=== PATIENT | female | born 1955 | race Caucasian/White ===

== ENCOUNTER → 2019-03-17 | Day surgery (SDC) | payer MEDICARE, OTHER ==
[2019-03-16 15:27] LABS: BASOPHILS # (AUTO) 0.1 (0.0-0.1); BASOPHILS % 1.2 % (0.0-1.0); EOSINOPHILS # (AUTO) 0.1 (0.0-0.4); HEMATOCRIT 42.3 % (34.2-44.1); HEMOGLOBIN 14.1 g/dL (12.0-16.0); LYMPHOCYTES # (AUTO) 3.1 (1.0-3.2); LYMPHOCYTES % 44.2 % (18.0-39.1); MEAN CORPUSCULAR HEMOGLOBIN 28.5 pg (28-32); MEAN CORPUSCULAR HGB CONC 33.3 g/dL (31-35); MEAN CORPUSCULAR VOLUME 85.5 fL (81-99); MONOCYTES # (AUTO) 0.5 (0.2-0.8); MONOCYTES % 7.7 % (4.4-11.3); NEUTROPHILS # (AUTO) 3.1 (2.1-6.9); NEUTROPHILS % 44.6 % (38.7-80.0); PLATELET COUNT 281 x10e3/uL (140-360); RED BLOOD COUNT 4.95 x10e6/uL (3.6-5.1); RED CELL DISTRIBUTION WIDTH 14.8 % (11.7-14.4)
--- NOTE | 2019-03-16 16:08 | Diagnostic Imaging Report ---
EXAMINATION: PA and lateral views of the chest. Comparison examination: None available. Clinical indication: Preoperative study for fifth digit surgery. Findings: The lungs are well-inflated and without focal airspace consolidation, pleural effusion, or pneumothorax. Cardiomediastinal contour and pulmonary vasculature are within normal limits. No acute osseous abnormality. Degenerative disc changes of the partially visualized lumbar spine. IMPRESSION: No acute cardiopulmonary abnormalities. Signed by: Dr. Callum Álvarez M.D. on 03/16/2019 4:04 PM
[~2019-03-17] MED LIST: ALENDRONATE SOD70 MG PO; BIOTIN PO; CALTRATE PLUS1 EACH PO; CLINDAMYCIN 600MG / 50ML 50 ML IV ONE; DESFLURANE 240 ML BTL INH ONE; DEXAMETHASONE SOD PHOS INJ 4 MG/ML VIAL ONE; DOXYCYCLINE HYC50 MG PO; FENTANYL CITRATE/PF 100MCG/2 ML INJ ONE; LIDOCAINE HCL 2% LOCAL INJ 5 ML SDV VIAL INJ ONE; MEGA RED PO; MIDAZOLAM HCL 2 MG/2 ML VIAL ONE; MUPIROCIN22 GM TOP; NORCO 7.5-3251 EACH PO; OMEGA 3 PO; ONDANSETRON HCL INJ 2MG/ML 2ML 2 MG/ML VIAL ONE; PRESERVISION T1 EACH PO; PROPOFOL IV EMULSION 10 MG/ML 20 ML VIAL ONE; SYNTHROID PO; SYNTHROID88 MCG PO; ZOVIA 1-50E1 EACH PO; ZYRTEC-D TABLE1 EACH PO; ZYRTEC10 M3 PO; [UNRECOGNIZED DRUG - OTHER] OP; [UNRECOGNIZED DRUG - OTHER] PO; [UNRECOGNIZED DRUG - OTHER] PO; [UNRECOGNIZED DRUG - OTHER] PO; [UNRECOGNIZED DRUG - OTHER] PO; [UNRECOGNIZED DRUG - OTHER] PO
--- OUTSIDE RECORDS SUMMARY | 2019-03-17 08:06 | XMS REPORT | Continuity of Care Document ---
Author Author Leonora mohinder [facility] Interface Address Unknown Phone Unavailable Problems Problem Status Onset Date Classification Date Reported Comments Source Dry eyes 12/16/2018 Diagnosis 01/12/2019 [facility] Immunization 12/16/2018 Diagnosis 01/12/2019 [facility] At risk for falls 12/16/2018 Diagnosis 01/12/2019 [facility] Depression screening 12/16/2018 Diagnosis 01/12/2019 [facility] Cerebral palsy 12/16/2018 Diagnosis 01/12/2019 [facility] Degeneration of lumbar intervertebral disc 12/16/2018 Diagnosis 01/12/2019 [facility] Hyperlipidemia 12/16/2018 Problem 01/12/2019 [facility] Dry Eyes 12/16/2018 Problem 01/12/2019 [facility] Acute gastroenteritis 08/09/2017 Diagnosis 12/24/2017 [facility] Body mass index 20-24 - normal 06/20/2017 Diagnosis 12/24/2017 [facility] Degeneration of Lumbar Intervertebral Disc 04/02/2017 Problem 01/12/2019 [facility] Hip pain 02/12/2017 Diagnosis 12/24/2017 [facility] Removal of suture 01/22/2017 Diagnosis 12/24/2017 [facility] Abnormal gait due to muscle weakness 12/17/2016 Diagnosis 12/24/2017 [facility] History of methicillin resistant Staphylococcus aureus infection 12/17/2016 Diagnosis 12/24/2017 [facility] Cerebral Palsy 12/17/2016 Problem 01/12/2019 [facility] Osteoporosis 10/11/2016 Diagnosis 12/24/2017 [facility] Hypothyroidism 10/11/2016 Problem 01/12/2019 [facility] Adult health examination 07/09/2016 Diagnosis 12/24/2017 [facility] Medications Medication Details Route Status Patient Instructions Ordering Provider Order Date Source Ciprofloxacin 500 MG Oral Tablet [Cipro] Cipro 500 mg tablet Take 1 tablet every 12 hours by oral route. Active 12/24/2017 [facility] Atropine Sulfate 0.025 MG / Diphenoxylate Hydrochloride 2.5 MG Oral Tablet [Lomotil] Lomotil 2.5 mg-0.025 mg tablet Take 2 tablets 3 times a day by oral route. Active 12/24/2017 [facility] Oseltamivir 75 MG Oral Capsule oseltamivir 75 mg capsule Active 12/24/2017 [facility] meloxicam 15 MG Oral Tablet meloxicam 15 mg tablet Active 08/09/2017 [facility] OneTouch UltraMini kit OneTouch UltraMini kit Active 02/12/2017 [facility] loteprednol etabonate 5 MG/ML / Tobramycin 3 MG/ML Ophthalmic Suspension [Zylet] Zylet 0.3 %-0.5 % eye drops,suspension shake liquid and instill 1 drop in right eye four times daily Active 02/12/2017 [facility] Azithromycin 250 MG Oral Tablet azithromycin 250 mg tablet as directed Active 01/22/2017 [facility] Levothyroxine Sodium 0.075 MG Oral Tablet [Synthroid] Synthroid 75 mcg tablet Active 12/17/2016 [facility] Diclofenac Sodium 0.03 MG/MG Topical Gel diclofenac 3 % topical gel Active 07/09/2016 [facility] doxycycline hyclate 50 MG Oral Capsule doxycycline hyclate 50 mg capsule Active 07/09/2016 [facility] doxycycline hyclate 50 MG Delayed Release Oral Tablet doxycycline hyclate 50 mg tablet,delayed release Active 07/09/2016 [facility] Cyclosporine 0.5 MG/ML Ophthalmic Suspension [Restasis] Restasis 0.05 % eye drops in a dropperette Active 07/09/2016 [facility] Alendronic acid 70 MG Oral Tablet alendronate 70 mg tablet TAKE 1 TABLET WEEKLY Active [facility] Avenova 0.01 % topical spray Avenova 0.01 % topical spray BID Active [facility] Fish Oil Fish Oil two tabs twice a day Active [facility] loteprednol etabonate 5 MG/ML Ophthalmic Suspension [Lotemax] Lotemax 0.5 % eye drops,suspension qd Active [facility] multivitamin multivitamin one daily Active [facility] Mupirocin 0.02 MG/MG Topical Ointment mupirocin 2 % topical ointment APPLY A SMALL AMOUNT IN THE NOSTRILS AT BEDTIME. Active [facility] Ocuvite Ocuvite 1 tab a day Active [facility] OneTouch Delica Lancets 30 gauge OneTouch Delica Lancets 30 gauge USE ONCE DAILY Active [facility] OneTouch Delica Lancets 33 gauge OneTouch Delica Lancets 33 gauge QD Active [facility] Levothyroxine Sodium 0.088 MG Oral Tablet [Synthroid] Synthroid 88 mcg tablet Take 1 tablet every day by oral route for 90 days. Active [facility] Triamcinolone Acetonide 0.005 MG/MG Topical Ointment triamcinolone acetonide 0.5 % topical ointment APPLY A THIN LAYER TO THE AFFECTED AREA(S) BY TOPICAL ROUTE 2 TIMES PER DAY FOR UP TO 2 WEEKS Active [facility] True Metrix Glucose Test Strip True Metrix Glucose Test Strip USE DIRECTED EVERY DAY Active [facility] lifitegrast 50 MG/ML Ophthalmic Solution [Xiidra] Xiidra 5 % eye drops in a dropperette qd Active [facility] OneTouch Ultra Test strips OneTouch Ultra Test strips Active [facility] Allergies, Adverse Reactions, Alerts Substance Category Reaction Severity Reaction type Status Date Reported Comments Source Penicillins Allergy to substance 07/09/2016 [facility] Immunizations Immunization Date Given Site Status Last Updated Comments Source pneumococcal conjugate PCV 13 12/16/2018 completed [facility] influenza, injectable, quadrivalent, preservative free 06/10/2018 completed [facility] Influenza, injectable, MDCK, quadrivalent 06/20/2017 completed [facility] Tdap 01/15/2017 completed [facility] zoster 12/17/2016 completed [facility] Tdap 07/09/2016 completed [facility] influenza, seasonal, injectable, preservative free 07/09/2016 completed [facility] Results Order Name Results Value Reference Range Date Interpretation Comments Source Lipid 1995 panel - Serum or Plasma HDL 93 mg/dL 40 - 60 12/17/2018 high [facility] Lipid 1995 panel - Serum or Plasma triglyceride 66 mg/dL 0 - 149 12/17/2018 [facility] Lipid 1995 panel - Serum or Plasma VLDL calc. 13 mg/dL 12/17/2018 [facility] Lipid 1995 panel - Serum or Plasma cholesterol/HDL ratio 2.5 mg/dL 12/17/2018 [facility] Lipid 1995 panel - Serum or Plasma non-HDL cholesterol calc. 142 mg/dL 0 - 160 12/17/2018 [facility] Lipid 1995 panel - Serum or Plasma cholesterol 235 mg/dL 0 - 199 12/17/2018 [facility] Lipid 1995 panel - Serum or Plasma Cholesterol in LDL [Mass/volume] in Serum or Plasma 129 mg/dL 0 - 130 12/17/2018 [facility] Comprehensive metabolic 1999 panel - Serum or Plasma ALT 21 U/L 0 - 55 12/17/2018 [facility] Comprehensive metabolic 1999 panel - Serum or Plasma AST 27 U/L 5 - 34 12/17/2018 [facility] Comprehensive metabolic 1999 panel - Serum or Plasma BUN 11.1 mg/dL 9.8 - 20.1 12/17/2018 [facility] Comprehensive 1999 panel - Serum or Plasma alk phos 116 unit/L 40 - 150 12/17/2018 [facility] Comprehensive metabolic 1999 panel - Serum or Plasma glucose 101 mg/dL 70 - 99 12/17/2018 high [facility] Comprehensive metabolic 1999 panel - Serum or Plasma albumin 4.0 g/dL 3.5 - 5.0 12/17/2018 [facility] Comprehensive metabolic 1999 panel - Serum or Plasma creatinine 0.74 mg/dL 0.57 - 1.11 12/17/2018 [facility] Comprehensive 1999 panel - Serum or Plasma eGFR non- >60 12/17/2018 [facility] Comprehensive 1999 panel - Serum or Plasma total bilirubin 0.6 mg/dL 0.2 - 1.2 12/17/2018 [facility] Comprehensive metabolic 1999 panel - Serum or Plasma eGFR - >60 12/17/2018 [facility] Comprehensive 1999 panel - Serum or Plasma sodium 139 mEq/L 136 - 145 12/17/2018 [facility] Comprehensive metabolic 1999 panel - Serum or Plasma potassium 4.2 mEq/L 3.5 - 5.1 12/17/2018 [facility] Comprehensive 1999 panel - Serum or Plasma chloride 104 mmol/L 98 - 107 12/17/2018 [facility] Comprehensive metabolic 1999 panel - Serum or Plasma total protein 7.3 g/dL 6.4 - 8.3 12/17/2018 [facility] Comprehensive metabolic 1999 panel - Serum or Plasma calcium 10.0 mg/dL 8.4 - 10.2 12/17/2018 [facility] Comprehensive metabolic 1999 panel - Serum or Plasma CO2 26.7 mmol/L 23.0 - 31.0 12/17/2018 [facility] Comprehensive metabolic 1999 panel - Serum or Plasma anion gap 8 calc 12/17/2018 [facility] Thyrotropin [Units/volume] in Serum or Plasma TSH 1.061 uIU/mL 0.350 - 4.940 12/17/2018 [facility] Comprehensive metabolic 1999 panel - Serum or Plasma ALT 27 U/L 0 - 55 07/18/2017 [facility] Comprehensive metabolic 1999 panel - Serum or Plasma AST 31 U/L 5 - 34 07/18/2017 [facility] Comprehensive metabolic 1999 panel - Serum or Plasma BUN 15.3 mg/dL 9.8 - 20.1 07/18/2017 [facility] Comprehensive metabolic 1999 panel - Serum or Plasma alk phos 85 unit/L 40 - 150 07/18/2017 [facility] Comprehensive metabolic 1999 panel - Serum or Plasma glucose 103 mg/dL 70 - 99 07/18/2017 [facility] Comprehensive metabolic 1999 panel - Serum or Plasma albumin 3.9 g/dL 3.5 - 5.0 07/18/2017 [facility] Comprehensive metabolic 1999 panel - Serum or Plasma creatinine 0.72 mg/dL 0.57 - 1.11 07/18/2017 [facility] Comprehensive metabolic 1999 panel - Serum or Plasma eGFR non- >60 >60 07/18/2017 [facility] Comprehensive metabolic 1999 panel - Serum or Plasma total bilirubin 0.6 mg/dL 0.2 - 1.2 07/18/2017 [facility] Comprehensive metabolic 1999 panel - Serum or Plasma eGFR - >60 >60 07/18/2017 [facility] Comprehensive metabolic 1999 panel - Serum or Plasma sodium 143 mEq/L 136 - 145 07/18/2017 [facility] Comprehensive metabolic 1999 panel - Serum or Plasma potassium 4.5 mEq/L 3.5 - 5.1 07/18/2017 [facility] Comprehensive metabolic 1999 panel - Serum or Plasma chloride 108 mmol/L 98 - 107 07/18/2017 [facility] Comprehensive metabolic 1999 panel - Serum or Plasma total protein 7.2 g/dL 6.4 - 8.3 07/18/2017 [facility] Comprehensive metabolic 1999 panel - Serum or Plasma calcium 9.3 mg/dL 8.4 - 10.2 07/18/2017 [facility] Comprehensive metabolic 1999 panel - Serum or Plasma CO2 26.2 mmol/L 23.0 - 31.0 07/18/2017 [facility] Comprehensive metabolic 1999 panel - Serum or Plasma anion gap 9 calc 07/18/2017 [facility] Lipid 1995 panel - Serum or Plasma HDL 97 mg/dL 40 - 60 07/18/2017 [facility] Lipid 1995 panel - Serum or Plasma triglyceride 53 mg/dL 0 - 149 07/18/2017 [facility] Lipid 1996 panel - Serum or Plasma VLDL calc. 11 mg/dL 07/18/2017 [facility] Lipid 1996 panel - Serum or Plasma cholesterol/HDL ratio 2.4 mg/dL 07/18/2017 [facility] Lipid 1996 panel - Serum or Plasma non-HDL cholesterol calc. 135 mg/dL 0 - 160 07/18/2017 [facility] Lipid 1996 panel - Serum or Plasma cholesterol 232 mg/dL 0 - 199 07/18/2017 [facility] Lipid 1996 panel - Serum or Plasma LDL calc. 124 mg/dL 0 - 130 07/18/2017 [facility] CBC W Auto Differential panel - Blood WBC 5.99 x10*3/L 3.98 - 10.04 07/18/2017 [facility] CBC W Auto Differential panel - Blood RBC 4.60 10*12/L 3.93 - 5.22 07/18/2017 [facility] CBC W Auto Differential panel - Blood hemoglobin 13.00 g/dL 11.20 - 15.70 07/18/2017 [facility] CBC W Auto Differential panel - Blood hematocrit 40.6 % 34.1 - 44.9 07/18/2017 [facility] CBC W Auto Differential panel - Blood MCV 88.3 fL 80.0 - 100.0 07/18/2017 [facility] CBC W Auto Differential panel - Blood MCH 28.3 pg 25.6 - 32.2 07/18/2017 [facility] CBC W Auto Differential panel - Blood MCHC 32.0 g/dL 32.2 - 35.5 07/18/2017 [facility] CBC W Auto Differential panel - Blood RDW-SD 51.2 fL 36.4 - 46.3 07/18/2017 [facility] CBC W Auto Differential panel - Blood platelet count 289.0 k/uL 182.0 - 369.0 07/18/2017 [facility] CBC W Auto Differential panel - Blood MPV 12.0 fL 7.5 - 11.5 07/18/2017 [facility] CBC W Auto Differential panel - Blood neut% 45.8 % 34.0 - 71.1 07/18/2017 [facility] CBC W Auto Differential panel - Blood lymph% 42.4 % 19.3 - 51.7 07/18/2017 [facility] CBC W Auto Differential panel - Blood mon% 8.5 % 4.7 - 12.5 07/18/2017 [facility] CBC W Auto Differential panel - Blood eos% 2.5 % 0.7 - 5.8 07/18/2017 [facility] CBC W Auto Differential panel - Blood baso% 0.8 % 0.1 - 1.2 07/18/2017 [facility] CBC W Auto Differential panel - Blood neut# 2.7 x10*3/L 1.6 - 6.1 07/18/2017 [facility] CBC W Auto Differential panel - Blood lymph# 2.5 x10*3/L 1.2 - 3.7 07/18/2017 [facility] CBC W Auto Differential panel - Blood mon# 0.5 x10*3/L 0.2 - 0.9 07/18/2017 [facility] CBC W Auto Differential panel - Blood eos# 0.15 x10*3/L 0.04 - 0.36 07/18/2017 [facility] CBC W Auto Differential panel - Blood baso# 0.05 x10*3/L 0.01 - 0.08 07/18/2017 [facility] Thyrotropin [Units/volume] in Serum or Plasma TSH 2.089 uIU/mL 0.350 - 4.940 06/21/2017 [facility] Comprehensive metabolic 1999 panel - Serum or Plasma ALT 25 U/L 0 - 55 12/18/2016 [facility] Comprehensive metabolic 1999 panel - Serum or Plasma AST 27 U/L 5 - 34 12/18/2016 [facility] Comprehensive metabolic 1999 panel - Serum or Plasma BUN 17 mg/dL 7 - 20 12/18/2016 [facility] Comprehensive metabolic 1999 panel - Serum or Plasma alk phos 109 unit/L 40 - 150 12/18/2016 [facility] Comprehensive metabolic 1999 panel - Serum or Plasma glucose 101 mg/dL 70 - 99 12/18/2016 high [facility] Comprehensive metabolic 1999 panel - Serum or Plasma albumin 3.9 g/dL 3.5 - 5.0 12/18/2016 [facility] Comprehensive metabolic 1999 panel - Serum or Plasma creatinine 0.73 mg/dL 0.57 - 1.11 12/18/2016 [facility] Comprehensive metabolic 1999 panel - Serum or Plasma eGFR non- >60 >60 12/18/2016 [facility] Comprehensive metabolic 1999 panel - Serum or Plasma total bilirubin 0.6 mg/dL 0.2 - 1.2 12/18/2016 [facility] Comprehensive metabolic 1999 panel - Serum or Plasma eGFR - >60 >60 12/18/2016 [facility] Comprehensive metabolic 1999 panel - Serum or Plasma sodium 142 mEq/L 137 - 144 12/18/2016 [facility] Comprehensive metabolic 1999 panel - Serum or Plasma potassium 4.3 mEq/L 3.5 - 5.0 12/18/2016 [facility] Comprehensive metabolic 1999 panel - Serum or Plasma chloride 106 mmol/L 101 - 110 12/18/2016 [facility] Comprehensive metabolic 1999 panel - Serum or Plasma total protein 7.1 g/dL 6.4 - 8.3 12/18/2016 [facility] Comprehensive metabolic 1999 panel - Serum or Plasma calcium 8.9 mg/dL 8.4 - 10.2 12/18/2016 [facility] Comprehensive metabolic 1999 panel - Serum or Plasma CO2 25.7 mmol/L 22.0 - 31.0 12/18/2016 [facility] Comprehensive metabolic 1999 panel - Serum or Plasma anion gap 10 calc 12/18/2016 [facility] Lipid 1996 panel - Serum or Plasma HDL 90 mg/dL 40 - 60 12/18/2016 high [facility] Lipid 1996 panel - Serum or Plasma triglyceride 51 mg/dL 0 - 149 12/18/2016 [facility] Lipid 1996 panel - Serum or Plasma VLDL calc. 10 mg/dL 12/18/2016 [facility] Lipid 1996 panel - Serum or Plasma cholesterol/HDL ratio 2 mg/dL 12/18/2016 [facility] Lipid 1995 panel - Serum or Plasma non-HDL cholesterol calc. 133 mg/dL 0 - 160 12/18/2016 [facility] Lipid 1995 panel - Serum or Plasma cholesterol 223 mg/dL 0 - 199 12/18/2016 high [facility] Lipid 1995 panel - Serum or Plasma LDL calc. 123 mg/dL 0 - 130 12/18/2016 [facility] Thyrotropin [Units/volume] in Serum or Plasma TSH 1.358 uIU/mL 0.350 - 4.940 12/18/2016 [facility] CBC W Auto Differential panel - Blood WBC 10.57 x10*3/L 2.60 - 11.20 12/17/2016 [facility] CBC W Auto Differential panel - Blood RBC 4.41 10*12/L 3.93 - 5.87 12/17/2016 [facility] CBC W Auto Differential panel - Blood hemoglobin 12.60 g/dL 10.70 - 15.70 12/17/2016 [facility] CBC W Auto Differential panel - Blood hematocrit 37.9 % 33.2 - 46.8 12/17/2016 [facility] CBC W Auto Differential panel - Blood MCV 85.9 fL 77.8 - 103.4 12/17/2016 [facility] CBC W Auto Differential panel - Blood MCH 28.6 pg 24.8 - 35.0 12/17/2016 [facility] CBC W Auto Differential panel - Blood MCHC 33.2 g/dL 31.5 - 35.9 12/17/2016 [facility] CBC W Auto Differential panel - Blood RDW-SD 45.9 fL 35.8 - 50.4 12/17/2016 [facility] CBC W Auto Differential panel - Blood platelet count 286.0 k/uL 126.7 - 416.1 12/17/2016 [facility] CBC W Auto Differential panel - Blood MPV 11.0 fL 8.3 - 13.5 12/17/2016 [facility] CBC W Auto Differential panel - Blood neut% 62.2 % 39.5 - 76.9 12/17/2016 [facility] CBC W Auto Differential panel - Blood lymph% 25.4 % 12.6 - 45.8 12/17/2016 [facility] CBC W Auto Differential panel - Blood mon% 10.8 % 3.7 - 12.9 12/17/2016 [facility] CBC W Auto Differential panel - Blood eos% 1.1 % 0.7 - 6.4 12/17/2016 [facility] CBC W Auto Differential panel - Blood baso% 0.5 % 0.1 - 1.5 12/17/2016 [facility] CBC W Auto Differential panel - Blood neut# 6.6 x10*3/L 0.6 - 7.6 12/17/2016 [facility] CBC W Auto Differential panel - Blood lymph# 2.7 x10*3/L 0.7 - 3.3 12/17/2016 [facility] CBC W Auto Differential panel - Blood mon# 1.1 x10*3/L 0.2 - 1.0 12/17/2016 [facility] CBC W Auto Differential panel - Blood eos# 0.12 x10*3/L 0.04 - 0.44 12/17/2016 [facility] CBC W Auto Differential panel - Blood baso# 0.05 x10*3/L 0.01 - 0.08 12/17/2016 [facility] clinical information: cve 07/12/2016 [facility] LMP: menopause 07/12/2016 [facility] prev. Pap: 07/12/2016 [facility] prev. BX: unknown 07/12/2016 [facility] CBC W Auto Differential panel - Blood white blood cell count tnp 07/12/2016 [facility] Comprehensive metabolic 2000 panel - Serum or Plasma glucose 103 mg/dL 65 - 99 07/12/2016 [facility] Comprehensive metabolic 2000 panel - Serum or Plasma urea nitrogen (BUN) 15 mg/dL 7 - 25 07/12/2016 [facility] Comprehensive metabolic 1999 panel - Serum or Plasma creatinine 0.66 mg/dL 0.50 - 0.99 07/12/2016 [facility] Comprehensive metabolic 1999 panel - Serum or Plasma eGFR non-afr. singaporean 95 mL/min/1.73m2 > or=60 07/12/2016 [facility] Comprehensive metabolic 1999 panel - Serum or Plasma eGFR 110 mL/min/1.73m2 > or=60 07/12/2016 [facility] Comprehensive metabolic 1999 panel - Serum or Plasma BUN/creatinine ratio not applicable 6 - 22 07/12/2016 [facility] Comprehensive metabolic 1999 panel - Serum or Plasma sodium 145 mmol/L 135 - 146 07/12/2016 [facility] Comprehensive metabolic 1999 panel - Serum or Plasma potassium 4.4 mmol/L 3.5 - 5.3 07/12/2016 [facility] Comprehensive metabolic 1999 panel - Serum or Plasma chloride 106 mmol/L 98 - 110 07/12/2016 [facility] Comprehensive metabolic 2000 panel - Serum or Plasma carbon dioxide 29 mmol/L 20 - 07/12/2016 [facility] Comprehensive metabolic 2000 panel - Serum or Plasma calcium 9.5 mg/dL 8.6 - 10.4 07/12/2016 [facility] Comprehensive metabolic 1999 panel - Serum or Plasma protein, total 6.9 g/dL 6.1 - 8.1 07/12/2016 [facility] Comprehensive metabolic 2000 panel - Serum or Plasma albumin 4.3 g/dL 3.6 - 5.1 07/12/2016 [facility] Comprehensive metabolic 2000 panel - Serum or Plasma globulin 2.6 g/dL_(calc) 1.9 - 3.7 07/12/2016 [facility] Comprehensive metabolic 1999 panel - Serum or Plasma albumin/globulin ratio 1.7 (calc) 1.0 - 2.5 07/12/2016 [facility] metabolic 1999 panel - Serum or Plasma bilirubin, total 0.7 mg/dL 0.2 - 1.2 07/12/2016 [facility] metabolic 1999 panel - Serum or Plasma alkaline phosphatase 101 U/L 33 - 130 07/12/2016 [facility] metabolic 1999 panel - Serum or Plasma AST 29 U/L 10 - 35 07/12/2016 [facility] metabolic 1999 panel - Serum or Plasma ALT 23 U/L 6 - 29 07/12/2016 [facility] Lipid 1995 panel - Serum or Plasma cholesterol, total 200 mg/dL 125 - 200 07/12/2016 [facility] Lipid 1995 panel - Serum or Plasma HDL cholesterol 97 mg/dL > or=46 07/12/2016 [facility] Lipid 1995 panel - Serum or Plasma triglycerides 56 mg/dL <150 07/12/2016 [facility] Lipid 1995 panel - Serum or Plasma LDL-cholesterol 92 mg/dL_(calc) <130 07/12/2016 [facility] Lipid 1995 panel - Serum or Plasma chol/HDLC ratio 2.1 (calc) < or=5.0 07/12/2016 [facility] Lipid 1995 panel - Serum or Plasma non HDL cholesterol 103 mg/dL_(calc) 07/12/2016 [facility] Thyrotropin [Units/volume] in Serum or Plasma TSH 4.99 mIU/L 0.40 - 4.50 07/12/2016 [facility] CBC W Auto Differential panel - Blood WBC 5.85 x10*3/L 2.60 - 11.20 07/09/2016 [facility] CBC W Auto Differential panel - Blood RBC 4.77 10*12/L 3.93 - 5.87 07/09/2016 [facility] CBC W Auto Differential panel - Blood hemoglobin 13.6 g/dL 10.7 - 15.7 07/09/2016 [facility] CBC W Auto Differential panel - Blood hematocrit 41.5 % 33.2 - 46.8 07/09/2016 [facility] CBC W Auto Differential panel - Blood MCV 87.0 fL 77.8 - 103.4 07/09/2016 [facility] CBC W Auto Differential panel - Blood MCH 28.5 pg 24.8 - 35.0 07/09/2016 [facility] CBC W Auto Differential panel - Blood MCHC 32.8 g/dL 31.5 - 35.9 07/09/2016 [facility] CBC W Auto Differential panel - Blood RDW-SD 45.1 fL 35.8 - 50.4 07/09/2016 [facility] CBC W Auto Differential panel - Blood platelet count 286.0 k/uL 126.7 - 416.1 07/09/2016 [facility] CBC W Auto Differential panel - Blood MPV 11.5 fL 8.3 - 13.5 07/09/2016 [facility] CBC W Auto Differential panel - Blood neut% 45.1 % 39.5 - 76.9 07/09/2016 [facility] CBC W Auto Differential panel - Blood lymph% 39.8 % 12.6 - 45.8 07/09/2016 [facility] CBC W Auto Differential panel - Blood mon% 10.3 % 3.7 - 12.9 07/09/2016 [facility] CBC W Auto Differential panel - Blood eos% 3.900 % 0.001 - 6.400 07/09/2016 [facility] CBC W Auto Differential panel - Blood baso% 0.9 % 0.0 - 1.5 07/09/2016 [facility] CBC W Auto Differential panel - Blood neut# 2.6 x10*3/L 0.6 - 7.6 07/09/2016 [facility] CBC W Auto Differential panel - Blood lymph# 2.3 x10*3/L 0.7 - 3.3 07/09/2016 [facility] CBC W Auto Differential panel - Blood mon# 0.6 x10*3/L 0.2 - 1.0 07/09/2016 [facility] CBC W Auto Differential panel - Blood eos# 0.23 x10*3/L 0.00 - 0.44 07/09/2016 [facility] CBC W Auto Differential panel - Blood baso# 0.050 x10*3/L 0.001 - 0.080 07/09/2016 [facility] Vital Signs Vital Sign Value Date Comments Source Diastolic (mm Hg) 70 12/16/2018 [facility] Height 65 12/16/2018 [facility] Systolic (mm Hg) 110 12/16/2018 [facility] Weight 136.2 12/16/2018 [facility] Diastolic (mm Hg) 70 12/24/2017 [facility] Height 67 12/24/2017 [facility] Systolic (mm Hg) 118 12/24/2017 [facility] Weight 136 12/24/2017 [facility] Diastolic (mm Hg) 58 08/09/2017 [facility] Height 67 08/09/2017 [facility] Systolic (mm Hg) 108 08/09/2017 [facility] Weight 133 08/09/2017 [facility] Diastolic (mm Hg) 80 07/17/2017 [facility] Height 67 07/17/2017 [facility] Systolic (mm Hg) 116 07/17/2017 [facility] Weight 133 07/17/2017 [facility] Height 67 07/03/2017 [facility] Diastolic (mm Hg) 70 06/20/2017 [facility] Height 67 06/20/2017 [facility] Systolic (mm Hg) 110 06/20/2017 [facility] Weight 132 06/20/2017 [facility] Diastolic (mm Hg) 76 02/12/2017 [facility] Height 67 02/12/2017 [facility] Systolic (mm Hg) 118 02/12/2017 [facility] Weight 127 02/12/2017 [facility] Diastolic (mm Hg) 62 01/22/2017 [facility] Height 67 01/22/2017 [facility] Systolic (mm Hg) 100 01/22/2017 [facility] Diastolic (mm Hg) 63 12/20/2016 [facility] Height 67 12/20/2016 [facility] Systolic (mm Hg) 101 12/20/2016 [facility] Diastolic (mm Hg) 67 12/17/2016 [facility] Height 67 12/17/2016 [facility] Systolic (mm Hg) 100 12/17/2016 [facility] Weight 128 12/17/2016 [facility] Diastolic (mm Hg) 83 10/11/2016 [facility] Height 67 10/11/2016 [facility] Systolic (mm Hg) 111 10/11/2016 [facility] Diastolic (mm Hg) 88 07/09/2016 [facility] Height 67 07/09/2016 [facility] Systolic (mm Hg) 127 07/09/2016 [facility] Weight 136 07/09/2016 [facility] Encounters Location Location Details Encounter Type Encounter Number Reason For Visit Attending Provider ADM Date DC Date Status Source [place] - [facility] - [facility] Alexandre DimaGina Daly MD: [address] [place] [address], Ph. [id number] Alexandre Daly 07/09/2016 [facility] Aby Daly MD: [address] [place] [address], Ph. [id number] Alexandredoron Daly 10/11/2016 [facility] - [facility] Alexandre A. Aby Daly MD: [address] [place] [address], Ph. [id number] Alexandrefelipe Daly 12/17/2016 [facility] - [facility] Alexandre Dima. Aby Daly MD: [address] [place] [address], Ph. [id number] Alexandredoron Daly 12/20/2016 [facility] - [facility] Alexandre Dima. Aby Daly MD: [address] [place] [address], Ph. [id number] Alexandredoron Daly 01/22/2017 [facility] Rossi Rodriguez MD: [address] [place] [address], Ph. [id number] Rossi Rodriguez 02/12/2017 [facility] Alexandre Dima. Aby Daly MD: [address] [place] [address], Ph. [id number] Alexandre Badillo Addy 06/20/2017 [facility] Alexandre Dima. Aby Daly MD: [address] [place] [address], Ph. [id number] Alexandre Badillomessi Daly 07/03/2017 [facility] Alexandre Dima. Aby Daly MD: [address] [place] [address], Ph. [id number] [facility] Aby Daly 07/17/2017 [facility] Mauro Fernández MD: [address] [place] [address], Ph. [id number] Mauro Fernández 08/09/2017 [facility] A. Aby Daly MD: [address] [place] [address], Ph. [id number] Alexandre Daly 12/24/2017 [facility] Rossi Rodriguez MD: [address] [place] [address], Ph. [id number] Rossi Rodriguez 12/16/2018 [facility] Procedures Procedure Code Date Perfomer Comments Source Colonoscopy 04/30/2018 [facility] Back Surgery 03/14/2017 [facility] X-RAY HIP UNLIATERAL (2-3 VIEWS) 25120 02/12/2017 [facility] MAMMO, screening, digital, bilateral 07/09/2016 [facility] bone density 07/09/2016 [facility] Eye Surgery 09/23/2002 [facility] Cataract Surgery Complex [id number] 09/23/2000 [facility] Eye Surgery 09/23/1959 [facility]
--- OUTSIDE RECORDS SUMMARY | 2019-03-17 08:07 | XMS REPORT ---
Author Author [facility] Address Unknown Phone Unavailable Care Team Providers Care Asp Net C Developer Name Role Phone CALLUM CLAY Unavailable Unavailable Problems This patient has no known problems. Allergies, Adverse Reactions, Alerts This patient has no known allergies or adverse reactions. Medications This patient has no known medications. Results Test Description Test Time Test Comments Text Results Atomic Results Result Comments CHEST 2 VIEWS 2019-03-16 16:02:00 [facility] [address] [address] Patient Name: HAO CANO MR #: [id number] : 1955 Age/Sex: 63/F Req #: [id number] Adm Physician: Ordered by: CALLUM CLAY MD Report #: [id number] Location: OR Room/Bed: Procedure: [id number] DX/CHEST 2 VIEWS Exam Date: Exam Time: REPORT STATUS: Signed EXAMINATION: PA and lateral views of the chest. Comparison examin ation: None available. Clinical indication: Preoperative study for fifth digit surgery. Findings: The lungs are well-inflated and without focal airspace consolidation, pleural effusion, or pneumothorax. Cardiomediastinal contour and pulmonary vasculature are within normal limits. No acute osseous abnormality. Degenerative disc changes of the partially visualized lumbar spine. IMPRESSION: No acute cardiopulmonary abnormalities. Signed by: Dr. Clalum Bajwa M.D. on 03/16/2019 4:04 PM Dictated By: CALLUM BAJWA MD 1606 Transcribed By: LANIE on 03/16/19 1609 COPY TO: CALLUM CLAY MD
--- OUTSIDE RECORDS SUMMARY | 2019-03-17 08:07 | XMS REPORT | Encounter Summary ---
Author Organization Unknown Address [address] [place] [address] Phone [phone] Care Team Providers Care Health And Nutrition Specialist Name Role Phone Dr. Alexandre Badillo 3 [phone] Nela Pham MD 2 [phone] Jonny Owusu MD 107 [phone] Gretel Mancuso MD 119 [phone] Reason for Visit Left finger pain Instructions 1. Body mass index 20-24 - normal 2. Superficial laceration of face 3. Abrasion, hand, dorsum Bactrim DS 800 mg-160 mg tablet 4. Fracture of distal phalanx of finger Discussion Note tanna splint applied L D4-5 Patient educational handouts: No information available. Plan of Care Patient Instructions meds as directed,continue tanna splint prn/bid peroxide-neosporin to abrasion Reminders Provider Appointments Est Patient 03/20/2019 1:00PM Mauro Fernández MD Return to Office on or around 03/20/2019 Mauro Fernández MD Lab None recorded. Referral None recorded. Procedures None recorded. Surgeries None recorded. Imaging None recorded. Medications Name Start Date Avenova 0.01 % topical spray BID Bactrim DS 800 mg-160 mg tablet Take 1 tablet every 12 hours by oral route. Fish Oil two tabs twice a day Lotemax 0.5 % eye drops,suspension qd multivitamin one daily mupirocin 2 % topical ointment APPLY A SMALL AMOUNT IN THE NOSTRILS AT BEDTIME. Ocuvite 1 tab a day OneTouch Delica Lancets 30 gauge USE ONCE DAILY OneTouch Delica Lancets 33 gauge QD Restasis 0.05 % eye drops in a dropperette Synthroid 88 mcg tablet Take 1 tablet every day by oral route for 90 days. triamcinolone acetonide 0.5 % topical ointment APPLY A THIN LAYER TO THE AFFECTED AREA(S) BY TOPICAL ROUTE 2 TIMES PER DAY FOR UP TO 2 WEEKS True Metrix Glucose Test Strip USE DIRECTED EVERY DAY Xiidra 5 % eye drops in a dropperette qd Medications Administered None recorded. Vitals Height Weight BMI Blood Pressure 5 ft 5 in 138 lbs 23 kg/m2 114/72 mm[Hg] Lab Results None recorded. Allergies Code Code System Name Reaction Severity Status Onset Penicillins Active Problems Name Status Onset Date Source Hypothyroidism Active 10/11/2016 Cerebral Palsy Active 12/17/2016 Degeneration of Lumbar Intervertebral Disc Active 04/02/2017 Hyperlipidemia Active 12/16/2018 Dry Eyes Active 12/16/2018 Procedures Date Name Performed by 04/30/2018 Colonoscopy Information not available 03/14/2017 Back Surgery Information not available 09/23/2002 Eye Surgery Information not available 09/23/2000 Cataract Surgery Complex Information not available 09/23/1959 Eye Surgery Information not available Vaccine List Vaccine Type Influenza, injectable, MDCK, quadrivalent 06/20/20170.5 mL influenza, injectable, quadrivalent, preservative free 06/10/20180.5 mL influenza, seasonal, injectable, preservative free 07/09/20160.5 mL pneumococcal conjugate PCV 13 12/16/20180.5 mL Tdap 07/09/20160.5 mL 01/15/2017 zoster 12/17/20160.65 mL Social History Smoking Status Never Smoker Past Encounters 03/13/2019 Body Mass Index 20-24 - Normal; Superficial Laceration of Face; Abrasion, Hand, Dorsum; Fracture of Distal Phalanx of Finger Mauro Fernández MD: [address] [place] [address], Ph. 03/13/2019 Mauro Fernández MD: [address] [place] [address], Ph. History of Present Illness Note:f/u uc visit this morning<div>h/o fall yesterday lacerating face injuring L hand</div><div>xr L hand-small dorsal corner fx base dp-d5</div><div>facial laceration- steri strips</div><div>t-tox current</div> Review of Systems:ROS as noted in the HPI Review of Systems None recorded. Physical Exam General Adult Exam (Female), Musculoskeletal and Joint Exam Reported By: Patient Musculoskeletal:: Left Hand: DIP swelling, tenderness; d5-dip jt-<rom p/t/contusion Skin: Inspection and palpation: ; L hand -dorsal abrasionL eye-steri strips in situ lat laceration
--- OUTSIDE RECORDS SUMMARY | 2019-03-17 08:07 | XMS REPORT | Encounter Summary ---
Author Organization Unknown Address [address] [place] [address] Phone [phone] Care Team Providers Care Oil Extractor Name Role Phone Dr. Alexandre Badillo 3 [phone] Nela Pham MD 2 [phone] Jonny Owusu MD 107 [phone] Gretel Mancuso MD 119 [phone] Reason for Visit Left finger pain Instructions [...] Phalanx of Finger Mauro Fernández MD: [address] [place] [address], Ph. 03/13/2019 Mauro Fernández MD: [address] [place] [address], Ph. History of Present Illness Note:f/u uc [...]
--- OUTSIDE RECORDS SUMMARY | 2019-03-17 08:07 | XMS REPORT ---
Author Organization Unknown Address [address] [place] [address] Phone [phone] Care Team Providers Care Cartographic Engineer Name Role Phone DAVID WEBER MD 119 [phone] AMARA ELLIS MD 2 [phone] Allergies Code Code System Name Reaction Severity Status Onset Penicillins Active Medications Name Status Start Date Stop Date alendronate 70 mg tablet Active Not available azithromycin 250 mg tablet as directed Completed 01/22/2017 Cipro 500 mg tablet Take 1 tablet every 12 hours by oral route. Completed 12/24/2017 diclofenac 3 % topical gel Completed 07/09/2016 doxycycline hyclate 50 mg capsule Completed 07/09/2016 doxycycline hyclate 50 mg tablet,delayed release Completed 07/09/2016 Fish Oil two tabs twice a day Active Not available Lomotil 2.5 mg-0.025 mg tablet Take 2 tablets 3 times a day by oral route. Completed 12/24/2017 Lotemax 0.5 % eye drops,suspension qd Active Not available meloxicam 15 mg tablet Completed 08/09/2017 multivitamin one daily Active Not available mupirocin 2 % topical ointment APPLY A SMALL AMOUNT IN THE NOSTRILS AT BEDTIME. Active Not available Ocuvite 1 tab a day Active Not available OneTouch Delica Lancets 30 gauge Active Not available OneTouch Ultra Test strips Active Not available OneTouch UltraMini kit Completed 02/12/2017 oseltamivir 75 mg capsule Completed 12/24/2017 Restasis 0.05 % eye drops in a dropperette Completed 07/09/2016 Synthroid 75 mcg tablet Completed 12/17/2016 Synthroid 88 mcg tablet Take 1 tablet every day by oral route. Active Not available Xiidra 5 % eye drops in a dropperette qd Active Not available Zylet 0.3 %-0.5 % eye drops,suspension shake liquid and instill 1 drop in right eye four times daily Completed 02/12/2017 Notes: theralife (for eyes) 6 capsules a day EYE SUPPLEMENT : 2 capsules a day Problems Name Status Onset Date Source Hypothyroidism Active 10/11/2016 Cerebral Palsy Active 12/17/2016 Degeneration of Lumbar Intervertebral Disc Active 04/02/2017 Procedures Date Name Performed by 03/14/2017 Back Surgery Information not available 09/23/2002 Eye Surgery Notes: right Information not available 09/23/2000 Cataract Surgery Complex Notes: both, x2 Information not available 09/23/1959 Eye Surgery Notes: unknown Information not available 07/09/2016 MAMMO, Screening, Digital, Bilateral [facility] [address] [place] [address] (Work [address]) 07/09/2016 Bone Density [facility] [place] [id number] [place] [address] (Work Place) 02/12/2017 XR, Hip, Unilateral, 2 or 3 View [facility] [address] [place], [place] [id number] (Work Place) Notes: removal of an ovary: age 25 bunionectomy: age 20 bilateral foot muscle sx: age 11 bilateral great toe fusion: December,May 2012 Lab Results Date Name Specimen Result Interpretation Description Value Range Status Address 07/17/2017 CBC W/ Auto Diff Wbc 5.99 x10*3/L 3.98-10.04 x10*3/L Final [facility] Laboratory: [address] Rbc 4.60 10*12/L 3.93-5.22 10*12/L Final [facility] Laboratory: [address] Hemoglobin 13.00 g/dL 11.20-15.70 g/dL Final [facility] Laboratory: [address] Hematocrit 40.6 % 34.1-44.9 % Final [facility] Laboratory: [address] Mcv 88.3 fL 80.0-100.0 fL Final [facility] Laboratory: [address] Mch 28.3 pg 25.6-32.2 pg Final [facility] Laboratory: [address] Low Mchc 32.0 g/dL 32.2-35.5 g/dL Final [facility] Laboratory: [address] [place] High RDW-SD 51.2 fL 36.4-46.3 fL Final [facility] Laboratory: [address] [place] Platelet Count 289.0 k/uL 182.0-369.0 k/uL Final [facility] Laboratory: [address] [facility] Mpv 12.0 fL 7.5-11.5 fL Final [facility] Laboratory: [address] [place] Neut% 45.8 % 34.0-71.1 % Final [facility] Laboratory: [address] [place] Lymph% 42.4 % 19.3-51.7 % Final [facility] Laboratory: [address] [place] Mon% 8.5 % 4.7-12.5 % Final [facility] Laboratory: [address] [place] Eos% 2.5 % 0.7-5.8 % Final [facility] Laboratory: [address] [place] Baso% 0.8 % 0.1-1.2 % Final [facility] Laboratory: [address] [place] Neut# 2.7 x10*3/L 1.6-6.1 x10*3/L Final [facility] Laboratory: [address] [place] Lymph# 2.5 x10*3/L 1.2-3.7 x10*3/L Final [facility] Laboratory: [address] [place] Mon# 0.5 x10*3/L 0.2-0.9 x10*3/L Final [facility] Laboratory: [address] [place] Eos# 0.15 x10*3/L 0.04-0.36 x10*3/L Final [facility] Laboratory: [address] [place] Baso# 0.05 x10*3/L 0.01-0.08 x10*3/L Final [facility] Laboratory: [address] [place] 07/17/2017 CMP, Serum or Plasma Alt 27 U/L 0-55 U/L Final [facility] Laboratory: [address] [place] Ast 31 U/L 5-34 U/L Final [facility] Laboratory: [address], [place] Bun 15.3 mg/dL 9.8-20.1 mg/dL Final [facility] Laboratory: [address], [place] Alk Phos 85 unit/L 40-150 unit/L Final [facility] Laboratory: [address], [place] High Glucose 103 mg/dL 70-99 mg/dL Final [facility] Laboratory: [address] [place] [address], [place] Albumin 3.9 g/dL 3.5-5.0 g/dL Final [facility] Creatinine 0.72 mg/dL 0.57-1.11 mg/dL Final [facility] Laboratory: [address] [place] [address] eGFR Non- >60 mL/min/1.73m2 >60 mL/min/1.73m2 Final [facility] Laboratory: [address] Total Bilirubin 0.6 mg/dL 0.2-1.2 mg/dL Final [facility] Laboratory: [address] eGFR - >60 mL/min/1.73m2 >60 mL/min/1.73m2 Final [facility] [facility] Sodium 143 mEq/L 136-145 mEq/L Final [facility] Laboratory: [address] Potassium 4.5 mEq/L 3.5-5.1 mEq/L Final [facility] Laboratory: [address] [place] [address] High Chloride 108 mmol/L 98-107 mmol/L Final [facility] Laboratory: [address] Total Protein 7.2 g/dL 6.4-8.3 g/dL Final [facility] [address] [facility] Calcium 9.3 mg/dL 8.4-10.2 mg/dL Final [facility] Laboratory: [address] [place] [address], [place] Co2 26.2 mmol/L 23.0-31.0 mmol/L Final [facility] Laboratory: [address] Anion Gap 9 calc Final [facility] Laboratory: [address] 07/17/2017 Lipid Panel, Serum High Hdl 97 mg/dL 40-60 mg/dL Final [facility] Laboratory: [address] Triglyceride 53 mg/dL 0-149 mg/dL Final [facility] Laboratory: [address] VLDL Calc. 11 mg/dL Final [facility] Laboratory: [address] cholesterol/HDL Ratio 2.4 mg/dL Final [facility] Laboratory: [address] non-HDL Cholesterol Calc. 135 mg/dL 0-160 mg/dL Final [facility] Laboratory: [address] High Cholesterol 232 mg/dL 0-199 mg/dL Final [facility] Laboratory: [address] LDL Calc. 124 mg/dL 0-130 mg/dL Final [facility] Laboratory: [address] 06/20/2017 TSH, Serum or Plasma Tsh 2.089 uIU/mL 0.350-4.940 uIU/mL Final [facility] Laboratory: [address] 12/17/2016 CBC W/ Auto Diff Wbc 10.57 x10*3/L 2.60-11.20 x10*3/L Final [facility] Laboratory: [address] Rbc 4.41 10*12/L 3.93-5.87 10*12/L Final [facility] Laboratory: [address] Hemoglobin 12.60 g/dL 10.70-15.70 g/dL Final [facility] Laboratory: [address] Hematocrit 37.9 % 33.2-46.8 % Final [facility] Laboratory: [address] Mcv 85.9 fL 77.8-103.4 fL Final [facility] Laboratory: [address] Mch 28.6 pg 24.8-35.0 pg Final [facility] Laboratory: [address] Mchc 33.2 g/dL 31.5-35.9 g/dL Final [facility] Laboratory: [address] [place] RDW-SD 45.9 fL 35.8-50.4 fL Final [facility] Laboratory: [address] [place] Platelet Count 286.0 k/uL 126.7-416.1 k/uL Final [facility] Laboratory: [address] [place] Mpv 11.0 fL 8.3-13.5 fL Final [facility] Laboratory: [address] [place] Neut% 62.2 % 39.5-76.9 % Final [facility] Laboratory: [address] [place] Lymph% 25.4 % 12.6-45.8 % Final [facility] Laboratory: [address] [place] Mon% 10.8 % 3.7-12.9 % Final [facility] Laboratory: [address] [place] Eos% 1.1 % 0.7-6.4 % Final [facility] Laboratory: [address] [place] Baso% 0.5 % 0.1-1.5 % Final [facility] Laboratory: [address] [place] Neut# 6.6 x10*3/L 0.6-7.6 x10*3/L Final [facility] [facility] Lymph# 2.7 x10*3/L 0.7-3.3 x10*3/L Final [facility] Laboratory: [address] [place] High Mon# 1.1 x10*3/L 0.2-1.0 x10*3/L Final [facility] [address] [facility] Eos# 0.12 x10*3/L 0.04-0.44 x10*3/L Final [facility] Laboratory: [address] [place] Baso# 0.05 x10*3/L 0.01-0.08 x10*3/L Final [facility] Laboratory: [address] [place] 12/17/2016 CMP, Serum or Plasma Alt 25 U/L 0-55 U/L Final [facility] [address] [facility] Ast 27 U/L 5-34 U/L Final [facility] Laboratory: [address] [place] [address] Bun 17 mg/dL 7-20 mg/dL Final [facility] Laboratory: [address], [place] Alk Phos 109 unit/L 40-150 unit/L Final [facility]: [address] [facility] High Glucose 101 mg/dL 70-99 mg/dL Final [facility] Laboratory: [address] Albumin 3.9 g/dL 3.5-5.0 g/dL Final [facility] Laboratory: [address] Creatinine 0.73 mg/dL 0.57-1.11 mg/dL Final [facility] Laboratory: [address] eGFR Non- >60 mL/min/1.73m2 >60 mL/min/1.73m2 Final [facility] Laboratory: [address] Total Bilirubin 0.6 mg/dL 0.2-1.2 mg/dL Final [facility] Laboratory: [address] eGFR - >60 mL/min/1.73m2 >60 mL/min/1.73m2 Final [facility] Laboratory: [address] [place] [address] Sodium 142 mEq/L 137-144 mEq/L Final [facility] Laboratory: [address] Potassium 4.3 mEq/L 3.5-5.0 mEq/L Final [facility] Laboratory: [address] Chloride 106 mmol/L 101-110 mmol/L Final [facility] Laboratory: [address] Total Protein 7.1 g/dL 6.4-8.3 g/dL Final [facility] Laboratory: [address] Calcium 8.9 mg/dL 8.4-10.2 mg/dL Final [facility] Laboratory: [address] Co2 25.7 mmol/L 22.0-31.0 mmol/L Final [facility] Laboratory: [address] Anion Gap 10 calc Final [facility] [address] [facility] 12/17/2016 Lipid Panel, Serum High Hdl 90 mg/dL 40-60 mg/dL Final [facility] Laboratory: [address] Triglyceride 51 mg/dL 0-149 mg/dL Final [facility] Laboratory: [address] VLDL Calc. 10 mg/dL Final [facility] Laboratory: [address] cholesterol/HDL Ratio 2 mg/dL Final [facility] Laboratory: [address] non-HDL Cholesterol Calc. 133 mg/dL 0-160 mg/dL Final [facility] Laboratory: [address] High Cholesterol 223 mg/dL 0-199 mg/dL Final [facility] Laboratory: [address] LDL Calc. 123 mg/dL 0-130 mg/dL Final [facility] Laboratory: [address] 12/17/2016 TSH, Serum or Plasma Tsh 1.358 uIU/mL 0.350-4.940 uIU/mL Final [facility] Laboratory: [address] 07/09/2016 TSH, Serum or Plasma High Tsh 4.99 mIU/L 0.40-4.50 mIU/L Final [facility] Laboratory: [address] 07/09/2016 Lipid Panel, Serum Normal Cholesterol, Total 200 mg/dL 125- 200 mg/dL Final [facility] Laboratory: [address] Normal HDL Cholesterol 97 mg/dL > or=46 mg/dL Final [facility] Laboratory: [address] Normal Triglycerides 56 mg/dL <150 mg/dL Final [facility] Laboratory: [address] Normal LDL-cholesterol 92 mg/dL (calc) <130 mg/dL (calc) Final [facility] Laboratory: [address] Normal Chol/hdlc Ratio 2.1 (calc) < or=5.0 (calc) Final [facility] Laboratory: [address] Normal Non HDL Cholesterol 103 mg/dL (calc) Final [facility] Laboratory: [address] 07/09/2016 CMP, Serum or Plasma High Glucose 103 mg/dL 65-99 mg/dL Final [facility] Laboratory: [address] [place] [address] Normal Urea Nitrogen (BUN) 15 mg/dL 7-25 mg/dL Final [facility]: [address] [facility] Normal Creatinine 0.66 mg/dL 0.50-0.99 mg/dL Final [facility] Laboratory: [address] [place] [address] Normal eGFR Non-afr. Liberian 95 mL/min/1.73m2 > or=60 mL/min/1.73m2 Final [facility] Laboratory: [address] [place] [address] Normal eGFR 110 mL/min/1.73m2 > or=60 mL/min/1.73m2 Final [facility] Laboratory: [address] BUN/creatinine Ratio not applicable (calc) 6-22 (calc) Final [facility] Laboratory: [address] [place] [address] Normal Sodium 145 mmol/L 135-146 mmol/L Final [facility] Laboratory: [address] Normal Potassium 4.4 mmol/L 3.5-5.3 mmol/L Final [facility] Laboratory: [address] Normal Chloride 106 mmol/L 98-110 mmol/L Final [facility]: [address] [facility] Normal Carbon Dioxide 29 mmol/L 20-31 mmol/L Final [facility] Laboratory: [address] [place] [address] Normal Calcium 9.5 mg/dL 8.6-10.4 mg/dL Final [facility] Laboratory: [address] [place] [address] Normal Protein, Total 6.9 g/dL 6.1-8.1 g/dL Final [facility] Laboratory: [address] Normal Albumin 4.3 g/dL 3.6-5.1 g/dL Final [facility]: [facility] [facility] Normal Globulin 2.6 g/dL (calc) 1.9-3.7 g/dL (calc) Final [facility] Laboratory: [address] Normal Albumin/globulin Ratio 1.7 (calc) 1.0-2.5 (calc) Final [facility] Laboratory: [address] Normal Bilirubin, Total 0.7 mg/dL 0.2-1.2 mg/dL Final [facility]: [address] [facility] Normal Alkaline Phosphatase 101 U/L 33-130 U/L Final [facility]: [address] [facility] Normal Ast 29 U/L 10-35 U/L Final [facility] Laboratory: [address] [place] [address] Normal Alt 23 U/L 6-29 U/L Final [facility]: [address] [facility] 07/09/2016 CBC W/ Auto Diff White Blood Cell Count tnp thousand/uL Final [facility]: [address] [facility] 07/09/2016 CBC W/ Auto Diff Wbc 5.85 x10*3/L 2.60-11.20 x10*3/L Final [facility] Laboratory: [address] [place] [address] Rbc 4.77 10*12/L 3.93-5.87 10*12/L Final [facility] Laboratory: [address] [place] [address] Hemoglobin 13.6 g/dL 10.7-15.7 g/dL Final [facility] Laboratory: [address] Hematocrit 41.5 % 33.2-46.8 % Final [facility]: [address] [facility] Mcv 87.0 fL 77.8-103.4 fL Final [facility] Laboratory: [address] [place] [address] Mch 28.5 pg 24.8-35.0 pg Final [facility] Laboratory: [address] Mchc 32.8 g/dL 31.5-35.9 g/dL Final [facility] Laboratory: [address] [place] [address] RDW-SD 45.1 fL 35.8-50.4 fL Final [facility]: [address] [facility] Platelet Count 286.0 k/uL 126.7-416.1 k/uL Final [facility] Laboratory: [address] [place] [address] Mpv 11.5 fL 8.3-13.5 fL Final [facility]: [address] [facility] Neut% 45.1 % 39.5-76.9 % Final [facility] Laboratory: [address] [place] Lymph% 39.8 % 12.6-45.8 % Final [facility] Laboratory: [address] [place] Mon% 10.3 % 3.7-12.9 % Final [facility] Laboratory: [address] [place] Eos% 3.900 % 0.001-6.400 % Final [facility] Laboratory: [address] [place] Baso% 0.9 % 0.0-1.5 % Final [facility] Laboratory: [address] [facility] [place] Neut# 2.6 x10*3/L 0.6-7.6 x10*3/L Final [facility] Laboratory: [address] [place] Lymph# 2.3 x10*3/L 0.7-3.3 x10*3/L Final [facility] Laboratory: [address] [place] Mon# 0.6 x10*3/L 0.2-1.0 x10*3/L Final [facility] Laboratory: [address] [facility] [place] Eos# 0.23 x10*3/L 0.00-0.44 x10*3/L Final [facility] Laboratory: [address] [facility] [place] Baso# 0.050 x10*3/L 0.001-0.080 x10*3/L Final [facility] Laboratory: [address] [place] [address] 07/08/2016 Pap, IG + HPV mRNA E6/E7 + Reflex HPV (16+18+45) Normal Clinical Information: cve Final [facility] Laboratory: [address] Normal Lmp: menopause Final [facility] Laboratory: [address] Normal Prev. Pap: Final [facility]: [address] Normal Prev. BX: unknown Final [facility] Laboratory: [address] Normal Source: Final [facility] Laboratory: [address] Normal Statement of Adequacy: Final [facility] Laboratory: [address] Interpretation/result: Final [facility] Laboratory: [address] [place] [address], [place] Normal Comment: Final [facility] Laboratory: [address] [facility] [address], [place] Normal Agriculture Research Director: Final [facility] Laboratory: [address], [place] 06/29/2015 CBC W/ Auto Diff No observation recorded. [facility]: [address], [place] 03/10/2015 Hepatitis (A+B+C) Panel, Serum No observation recorded. [facility]: [address], [place] Urinalysis, Dipstick No observation recorded. [facility]: [address] [facility] Past Encounters 12/24/2017 Hypothyroidism; History of Methicillin Resistant Staphylococcus Aureus Infection; Cerebral Palsy; Body Mass Index 20-24 - Normal Alexandre Daly MD: [address] [place] [phone], Ph. 08/09/2017 Body Mass Index 20-24 - Normal; Acute Gastroenteritis Mauro Fernández MD: [address] [place] [phone], Ph. 07/17/2017 Adult Health Examination; Body Mass Index 20-24 - Normal Alexandre Daly MD: [address] [place] [phone], Ph. 07/03/2017 Alexandre Daly MD: [address] [place] [phone], Ph. 06/20/2017 Hypothyroidism; Body Mass Index 20-24 - Normal; Influenza Vaccination Alexandre Daly MD: [address] [place] [phone], Ph. 02/12/2017 Hip Pain Rossi Rodriguez MD: [address] [place] [phone], Ph. 01/22/2017 Removal of Suture Alexandrefelipe Daly MD: [address] [place] [phone], Ph. 12/20/2016 Hypothyroidism Alexandre Daly MD: [address] [place] [phone], Ph. 12/17/2016 Hypothyroidism; History of Methicillin Resistant Staphylococcus Aureus Infection; Cerebral Palsy; Abnormal Gait Due to Muscle Weakness; Immunization Alexandre Daly MD: [address] [place] [phone], Ph. 10/11/2016 Osteoporosis; Hypothyroidism Alexandre Daly MD: [address] [place] [phone], Ph. 07/09/2016 Hypothyroidism; Adult Health Examination Alexandre Daly MD: [address] [place] [phone], Ph. Social History Smoking Status Never Smoker Vaccine List Vaccine Type Influenza, injectable, MDCK, quadrivalent 06/20/20170.5 mL influenza, seasonal, injectable, preservative free 07/09/20160.5 mL Tdap 07/09/20160.5 mL 01/15/2017 zoster 12/17/20160.65 mL Plan of Care Patient Instructions clear liquids 24 hours Reminders Provider Appointments None recorded. Lab None recorded. Referral None recorded. Procedures None recorded. Surgeries None recorded. Imaging None recorded. Vitals 12/24/2017 09:30AM Est Patient Height Weight BMI Blood Pressure 5 ft 7 in 136 lbs 21.3 kg/m2 118/70 mm[Hg] 08/09/2017 02:45PM Est Patient Height Weight BMI Blood Pressure 5 ft 7 in 133 lbs 20.8 kg/m2 108/58 mm[Hg] 07/17/2017 08:30AM Est Patient Height Weight BMI Blood Pressure 5 ft 7 in 133 lbs 20.8 kg/m2 116/80 mm[Hg] 07/03/2017 08:30AM INDEPENDENT FREIGHT AGENT/EST CPX Height 5 ft 7 in 06/20/2017 09:00AM Est Patient Height Weight BMI Blood Pressure 5 ft 7 in 132 lbs 20.7 kg/m2 110/70 mm[Hg] 02/12/2017 02:30PM Est Patient Height Weight BMI Blood Pressure 5 ft 7 in 127 lbs 19.9 kg/m2 118/76 mm[Hg] 01/22/2017 02:45PM Est Patient Height Weight Blood Pressure 5 ft 7 in 100/62 mm[Hg] 12/20/2016 10:00AM Est Patient Height Weight Blood Pressure 5 ft 7 in 101/63 mm[Hg] 12/17/2016 09:30AM INDEPENDENT FREIGHT AGENT/EST CPX Height Weight BMI Blood Pressure 5 ft 7 in 128 lbs 20 kg/m2 100/67 mm[Hg] 10/11/2016 10:00AM Est Patient Height Weight Blood Pressure 5 ft 7 in 111/83 mm[Hg] 07/09/2016 08:30AM INDEPENDENT FREIGHT AGENT/EST CPX Height Weight BMI Blood Pressure 5 ft 7 in 136 lbs 21.3 kg/m2 127/88 mm[Hg]
--- OUTSIDE RECORDS SUMMARY | 2019-03-17 08:07 | XMS REPORT | Encounter Summary ---
Author Organization Unknown Address [address] [place] [address] Phone [phone] Care Team Providers Care Joint Setter Name Role Phone Dr. Alexandre Badillo 3 [phone] Nela Pham MD 2 [phone] Jonny Owusu MD 107 [phone] Gretel Mancuso MD 119 [phone] Reason for Visit Degeneration of lumbar intervertebral disc; Hypothyroidism; Cerebral palsy Instructions 1. Degeneration of lumbar intervertebral disc 2. Cerebral palsy 3. Hypothyroidism TSH, serum or plasma lipid panel, serum CMP, serum or plasma Synthroid 88 mcg tablet 4. Dry eyes 5. Depression screening learning about depression 6. At risk for falls preventing falls: care instructions 7. Immunization Prevnar 13 (PF) 0.5 mL intramuscular syringe Discussion Note: None recorded. Plan of Care Reminders Provider Appointments Return to Office on or around 06/18/2019 Rossi Rodriguez MD Lab TSH, Serum or Plasma 12/16/2018 [facility] Lipid Panel, Serum 12/16/2018 [facility] CMP, Serum or Plasma 12/16/2018 [facility] Referral None recorded. Procedures None recorded. Surgeries None recorded. Imaging None recorded. Medications Name Start Date alendronate 70 mg tablet TAKE 1 TABLET WEEKLY Avenova 0.01 % topical spray BID Fish Oil two tabs twice a day Lotemax 0.5 % eye drops,suspension qd multivitamin one daily mupirocin 2 % topical ointment APPLY A SMALL AMOUNT IN THE NOSTRILS AT BEDTIME. Ocuvite 1 tab a day OneTouch Delica Lancets 30 gauge USE ONCE DAILY OneTouch Delica Lancets 33 gauge QD Synthroid 88 mcg tablet Take 1 tablet [...] BMI Blood Pressure 5 ft 5 in 136.2 lbs 22.7 kg/m2 110/70 mm[Hg] Lab Results Date Name Specimen Result Interpretation Description Value Range Status Address 12/16/2018 CMP, Serum or Plasma Alt 21 U/L 0-55 U/L Final [facility]: [address] [place] [address], [place] Ast 27 U/L 5-34 U/L Final [facility]: [address] [place] [address], [place] Bun 11.1 mg/dL 9.8-20.1 mg/dL Final [facility]: [address] [place] [address], [place] Alk Phos 116 unit/L 40-150 unit/L Final [facility]: [address] High Glucose 101 mg/dL 70-99 mg/dL Final [facility]: [address] Albumin 4.0 g/dL 3.5-5.0 g/dL Final [facility]: [address] Creatinine 0.74 mg/dL 0.57-1.11 mg/dL Final [facility]: [address] eGFR Non- >60 mL/min/1.73m2 Final [facility]: [address] Total Bilirubin 0.6 mg/dL 0.2-1.2 mg/dL Final [facility]: [address] eGFR - >60 mL/min/1.73m2 Final [facility]: [address] Sodium 139 mEq/L 136-145 mEq/L Final [facility]: [address] Potassium 4.2 mEq/L 3.5-5.1 mEq/L Final [facility]: [address] [place] [address], [place] Chloride 104 mmol/L 98-107 mmol/L Final [facility]: [address] Total Protein 7.3 g/dL 6.4-8.3 g/dL Final [facility]: [address] Calcium 10.0 mg/dL 8.4-10.2 mg/dL Final [facility]: [address] [place] [address], [place] Co2 26.7 mmol/L 23.0-31.0 mmol/L Final [facility]: [address] [place] [address], [place] Anion Gap 8 calc Final [facility]: [address] [place] [address], [place] 12/16/2018 Lipid Panel, Serum High Hdl 93 mg/dL 40-60 mg/dL Final [facility]: [address] [place] [address], [place] Triglyceride 66 mg/dL 0-149 mg/dL Final [facility]: [address] [place] [address], [place] VLDL Calc. 13 mg/dL Final [facility]: [address] cholesterol/HDL Ratio 2.5 mg/dL Final [facility]: [address] non-HDL Cholesterol Calc. 142 mg/dL 0-160 mg/dL Final [facility]: [address] High Cholesterol 235 mg/dL 0-199 mg/dL Final [facility]: [address] [place] [address], [place] LDL Calc. 129 mg/dL 0-130 mg/dL Final [facility]: [address] [place] [address], [place] 12/16/2018 TSH, Serum or Plasma Tsh 1.061 uIU/mL 0.350-4.940 uIU/mL Final [facility]: [address] Allergies Code Code System Name Reaction Severity [...] History Smoking Status Never Smoker Past Encounters 12/16/2018 Degeneration of Lumbar Intervertebral Disc; Cerebral Palsy; Hypothyroidism; Dry Eyes; Depression Screening; At Risk for Falls; Immunization Rossi Rodriguez MD: [address] [place] [address], Ph. History of Present Illness Note:Patient is here to have lab work and review of symptoms. No new problems, no new concerns. She is feeling great and looks good.<div>Pt had right L4-5 laminectomy with resection interspinal extradural synovial cyst by Dr Ramirez on 03/14/17 for right leg/hip pain. Pt notes that she's always had weakness of left leg from cerebral palsy (premature baby <3# at ). Started having right leg pain which eventually led to back surgery. Pt went to PT post- operatively. Pt returned to PT for evaluation over the holidays of 2017 for right leg pain returning - physical therapist thought L2-3 were out of alignment & massaged pt's back into place. 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 Is careful with her movement. Can also occur with turning too fast. Sometimes aggravating.</div> Review of Systems:ROS as noted in the HPI Review of Systems Comprehensive General Adult ROS Reported By: Patient Eyes: Eyes: no vision change Cardiovascular: Cardiovascular: no chest pain, no palpitations Respiratory: Respiratory: no cough, no shortness of breath Gastrointestinal: Gastrointestinal: no abdominal pain Musculoskeletal: Musculoskeletal: muscle weakness, back pain Neurologic: Neurologic: no loss of consciousness, no headaches Physical Exam General Adult Exam (male) Reported By: Patient Constitutional: Level of Distress: NAD. Ambulation: limited ambulation Psychiatric: Insight: good judgement. Mental Status: active and alert, normal mood, normal affect. Orientation: to time, to place, to person. Memory: recent memory normal, remote memory normal Head: Head: normocephalic, atraumatic Eyes: Lids and Conjunctivae: non-injected. Pupils: PERRLA. EOM: EOMI ENMT: Ears: no lesions on external ear, EACs clear, TMs clear. Nose: no sinus tenderness, no nasal discharge. Lips, Teeth, and Gums: no mouth or lip ulcers. Oropharynx: moist mucous membranes, no erythema, no exudates Neck: Neck: supple, trachea midline. Lymph Nodes: no cervical LAD. Thyroid: no enlargement, non-tender Lungs: Auscultation: breath sounds normal Cardiovascular: Heart Auscultation: RRR, normal S1, normal S2, no murmurs. Neck vessels: no carotid bruits. Pulses including femoral / pedal: normal throughout Abdomen: Bowel Sounds: normal. Inspection and Palpation: soft, non-distended, no tenderness, no guarding, no rebound tenderness. Liver: no hepatomegaly. Spleen: no splenomegaly Musculoskeletal:: Motor Strength and Tone: normal tone; Strength 4/5 in LE distal and proximal. Joints, Bones, and Muscles: no tenderness. Extremities: no cyanosis, no edema Neurologic: Gait and Station: irregular gait; Bilateral intoeing. Reflexes: DTRs 2+ bilaterally throughout. Coordination and Cerebellum: [id number] intact, no tremor Skin: Inspection and palpation: no rash, no lesions
--- OUTSIDE RECORDS SUMMARY | 2019-03-17 08:07 | XMS REPORT | Encounter Summary ---
Author Organization Unknown Address [address] [place] [address] Phone [phone] Care Team Providers Care Cancer Registry Manager Name Role Phone Dr. Alexandre Badillo 3 [phone] Nela Pham MD 2 [phone] Jonny Owsuu MD 107 [phone] Gretel Mancuso MD 119 [phone] Reason for Visit Left finger pain Instructions [...] Phalanx of Finger Mauro Fernández MD: [address] [place] [address], Ph. 03/13/2019 Mauro Fernández MD: [address] [place] [address], Ph. History of Present Illness Note:f/u uc [...]
[2019-03-17 12:19] VITALS: BP 123/86
--- NOTE | 2019-03-17 20:24 | Operative Report ---
DATE OF PROCEDURE: 03/17/2019 SURGEON: Callum Connolly MD TUBE BENDING MACHINE OPERATOR: Tyron Rdz, Certified PA. PREOPERATIVE DIAGNOSIS: Left 5th finger bony mallet deformity. 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 PROCEDURE: Closed reduction and percutaneous pin fixation, left 5th finger mallet deformity. INDICATIONS: The patient is a 63-year-old lady, who has a bony mallet deformity of her 5th left DIP joint. There is slight subluxation of the joint. We have discussed the findings and options and recommend closed reduction and percutaneous pin fixation. The risks and benefits have been explained. She states she understands and wishes to proceed. PROCEDURE IN DETAIL: The patient was brought to the operating room and placed under general anesthetic. Her left upper extremity was prepped and draped in a sterile manner. A preoperative time-out was performed. Using a C-arm image intensifier, a 0.045 mm K-wire was placed from the distal phalanx across the DIP joint and into the middle phalanx while the fracture was reduced. Intraoperative x-rays confirmed an anatomic reduction and good positioning of the pin. The pin was cut short and capped. She was extubated and transported to the recovery room in stable condition. There was no blood loss and all needle and sponge counts were correct. Callum Connolly MD DR/MIKEL /[id number]
== END | disposition home or self-care (01) ==
LOC: OR 07:25
PROVIDERS: ATTEND Specialist
DX: M20.012 Mallet finger of left finger(s) (principal); Z01.810 Encounter for preprocedural cardiovascular examination; Z01.812 Encounter for preprocedural laboratory examination; Z01.811 Encounter for preprocedural respiratory examination; Z88.0 Allergy status to penicillin; E03.9 Hypothyroidism, unspecified; F41.9 Anxiety disorder, unspecified; G80.9 Cerebral palsy, unspecified; M81.0 Age-related osteoporosis without current pathological fracture; H04.123 Dry eye syndrome of bilateral lacrimal glands; Z80.3 Family history of malignant neoplasm of breast; Z83.3 Family history of diabetes mellitus; Z82.49 Family history of ischemic heart disease and other diseases of the circulatory system
CPT/HCPCS: 26432; 36415; 71046; 76000; 85025; 93005; J1100; J2001; J2250; J2405; J2704; J3010

== ENCOUNTER 2020-07-13 13:02 | Inpatient (IN) | payer MEDICARE, OTHER ==
[~2020-07-13] VITALS: Ht 162.6 cm; Wt 55.4 kg
[~2020-07-13 13:02] MED LIST changes: -CLINDAMYCIN 600MG / 50ML 50 ML IV ONE; -DESFLURANE 240 ML BTL INH ONE; -DEXAMETHASONE SOD PHOS INJ 4 MG/ML VIAL ONE; -FENTANYL CITRATE/PF 100MCG/2 ML INJ ONE; -LIDOCAINE HCL 2% LOCAL INJ 5 ML SDV VIAL INJ ONE; -MIDAZOLAM HCL 2 MG/2 ML VIAL ONE; -ONDANSETRON HCL INJ 2MG/ML 2ML 2 MG/ML VIAL ONE; -PROPOFOL IV EMULSION 10 MG/ML 20 ML VIAL ONE
--- NOTE | 2020-07-13 13:33 | Emergency Department Note ---
History of Present Illnes History of Present Illness Chief Complaint: Back Pain History of Present Illness This is a 64 year old female .a&o x 3 presented to ed c/o left side low back pain radiating through left buttocks to left anterior thigh x 1 wk pain getting worse pain w/ amb /sitting /laying - zackary ing zanaflex maloxicam and medrol dose pack started Saturday - sts fell x 2 wks ago has seen pcp / ortho doc since - denies distal neuro deficits - no limited rom -pedal puses += bilat no lower ext swelling holmans cords Historian: Patient Arrival Mode: Car Beamster Required: No Radiation: Reports back, Reports extremity (c/o left side low back pain radiating through left buttocks to left thigh 10/10 pain ) Severity: severe Onset quality: gradual Duration (how long): week(s) (x1 wk - sts hx fal x 2 wks ago ) Context: Denies recent illness Relieving factors: none Exacerbating factors: none Associated symptoms: Denies denies other symptoms Treatments prior to arrival: other (therapy ) Past Medical/Family History Physician Review I have reviewed the patient's past medical and family history. Any updates have been documented here. Past Medical History Recent Fever: No Clinical Suspicion of Infectio: No New/Unexplained Change in Ment: No Other Medical History: cerebal palsey Social History Smoking Cessation: Never Smoker Alcohol Use: None Any Illegal Drug Use: No TB Exposure/Symptoms: No Physically hurt or threatened: No Family History Family history of heart diseas: No Other Any Pre-Existing Lines (PICC,: No Review of Systems Review of Systems Constitutional: Reports no symptoms EENTM: Reports no symptoms Cardiovascular: Reports no symptoms Respiratory: Reports no symptoms Gastrointestinal: Reports no symptoms Genitourinary: Reports no symptoms Musculoskeletal: Reports back pain (left side low back pain - radiating through left buttocks to anterior thigh ) Integumentary: Reports no symptoms Neurological: Reports no symptoms Psychological: Reports no symptoms Endocrine: Reports no symptoms Hematological/Lymphatic: Reports no symptoms Physical Exam Related Data Allergies: Coded Allergies: Penicillins (Verified Allergy, Mild, FEELS LIKE "ANTS CRAWLING ON SKIN", 11/17/10) Triage Vital Signs Vital Signs Date Time Temp Pulse Resp B/P (MAP) Pulse Ox O2 Delivery O2 Flow Rate FiO2 07/13/20 13:17 98.5 73 16 107/67 98 Room Air Vital signs reviewed: Yes Physical Exam CONSTITUTIONAL Constitutional: Present well-developed, Present other (c/o cont/ pain sts unable to amb bear wt lay flat hurts sitting but is her perferred position for intermittent comfort ) HENT EYES NECK PULMONARY CARDIOVASCULAR GASTROINTESTINAL GENITOURINARY SKIN MUSCULOSKELETAL Musculoskeletal: Present ROM normal, Present tenderness (left side lowback pain ttp si joint ); Absent edema, Absent deformity, Absent swelling NEUROLOGICAL PSYCHOLOGICAL Assessment & Plan Medical Decision Making MDM This is a 64 year old female .a&o x 3 presented to ed c/o left side low back pain radiating through left buttocks to left anterior thigh x 1 wk pain getting worse pain w/ amb /sitting /laying - taking zanaflex maloxicam and medrol dose pack started Saturday - sts fell x 2 wks ago has seen pcp / ortho doc since - denies distal neuro deficits - no limited rom -pedal pulses += bilat no lower ext swelling holmans cords - noted ttp left side low back / SI joint space noted low bp 97/64 hr 71 plan lab rad/mri fluids admit Reassessment Reassessment spoke w/ Dr Yu will consult spoke w/ Dr Colby will admit Assessment & Plan Final Impression: (1) Intractable back pain Depart Disposition: ADMITTED Last Vital Signs Date Time Temp Pulse Resp B/P (MAP) Pulse Ox O2 Delivery O2 Flow Rate FiO2 07/13/20 13:17 98.5 73 16 107/67 98 Room Air Home Meds Reported Medications [Nature Code Vit] No Conflict Check, 1 TAB PO DAILY 03/16/19 [Arenorc [place]] No Conflict Check, OP DAILY 03/16/19 [Theralife] No Conflict Check, 8 TAB PO DAILY 03/16/19 Mupirocin (MUPIROCIN) 22 Gm Oint...g., 22 GM TOP DAILY, EACH 03/16/19 Cetirizine Hcl/Pseudoephedrine (ZYRTEC-D TABLET) 1 Each Tab.er.12h, 2 TAB PO DAILY 03/16/19 [Deyvi Red] No Conflict Check, 4 TAB PO DAILY 03/16/19 Beta Carotene (PRESERVISION TABLET) 1 Each Tab, 2 TAB PO DAILY 03/16/19 Levothyroxine Sodium (SYNTHROID) 88 Mcg Tablet, 88 MCG PO 0630, #30 TAB 6/24/19 LESLYE MARCELINO MD Jul 13, 2020 13:33
[2020-07-13] MEDS ORDERED: KETOROLAC TROMETHAMINE 30 MG/ML VIAL IV STA (13:34)
[2020-07-13] MEDS ORDERED: SODIUM CHLORIDE 0.9% 1000ML 1,000 ML IV STA (13:34)
[2020-07-13 14:05] LABS: BASOPHILS % 0.4 % (0.0-1.0); EOSINOPHILS % 0.2 % (0.0-6.0); HEMATOCRIT 37.6 % (34.2-44.1); HEMOGLOBIN 12.3 g/dL (12.0-16.0); LYMPHOCYTES # (AUTO) 2.1 (1.0-3.2); LYMPHOCYTES % 22.6 % (18.0-39.1); MEAN CORPUSCULAR HEMOGLOBIN 28.8 pg (28-32); MEAN CORPUSCULAR HGB CONC 32.7 g/dL (31-35); MEAN CORPUSCULAR VOLUME 88.1 fL (81-99); MONOCYTES # (AUTO) 0.4 (0.2-0.8); MONOCYTES % 3.8 % (4.4-11.3); NEUTROPHILS # (AUTO) 6.6 (2.1-6.9); NEUTROPHILS % 72.6 % (38.7-80.0); PLATELET COUNT 297 x10e3/uL (140-360); RED BLOOD COUNT 4.27 x10e6/uL (3.6-5.1); RED CELL DISTRIBUTION WIDTH 14.8 % (11.7-14.4)
[2020-07-13 14:12] LABS: INR 0.89; PARTIAL THROMBOPLASTIN TIME 22.7 seconds (23.8-35.5); PROTHROMBIN TIME 12.5 seconds (11.9-14.5)
[2020-07-13 14:21] LABS: ALANINE AMINOTRANSFERASE 27 IU/L (0-55); ALBUMIN/GLOBULIN RATIO 1.3 (0.8-2.0); ALKALINE PHOSPHATASE 73 IU/L (40-150); ANION GAP 15.5 mmol/L (8-16); BLOOD UREA NITROGEN 15 mg/dL (7-26); BUN/CREATININE RATIO 17 (6-25); CARBON DIOXIDE 25 mmol/L (22-29); CHLORIDE 101 mmol/L (98-107); CREATININE, SERUM 0.88 mg/dL (0.57-1.11); EST GLOMERULAR FILTRATION RATE > 60 ML/MIN (60-); GLUCOSE 200 mg/dL (74-118); POTASSIUM 3.5 mmol/L (3.5-5.1); SODIUM 138 mmol/L (136-145)
--- OUTSIDE RECORDS SUMMARY | 2020-07-13 14:30 | XMS REPORT | Clinical Summary ---
Author Author [facility] Organization [facility] Address Unknown Phone Unavailable Care Team Providers Care Deli Bakery Clerk Name Role Phone Rossi Rodriguez MD PCP [phone] Allergies Comments Active Allergy Reactions Severity Noted Date Penicillins 04/27/2019 Medications End Date Status Medication Sig Dispensed Refills Start Date Active SYNTHROID 88 mcg tablet Take 88 mcg 2 by mouth 9 daily. Active mupirocin (BACTROBAN) 2 % daily. 0 02/22 ointment 9 Active RESTASIS 0.05 % 2 (two) times 3 ophthalmic emulsion a day. 9 Active vit A/vit C/vit Take by mouth 0 E/zinc/copper daily. (PRESERVISION AREDS ORAL) Active krill/om-3/dha/epa/phosph Take by mouth 0 o/ast (MEGARED OMEGA-3 daily. KRILL OIL ORAL) Active cetirizine (ZyrTEC) 10 MG Take 10 mg by 0 tablet mouth daily. Active carboxymethylcellulos/gly Apply to eye 0 cerin (REFRESH OPTIVE as needed. OPHT) Active multivitamin (THERAGRAN) Take 1 tablet 0 tablet by mouth daily. Active biotin 1 mg capsule Take by mouth 0 daily. Active calcium carbonate Take by mouth 0 (CALTRATE 600 ORAL) daily. 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 Recurrent falls 04/27/2019 Spasticity 04/27/2019 Surgical History Surgery Date Site/Laterality Comments EYE MUSCLE SURGERY FOOT SURGERY Bilateral BUNIONECTOMY Right OOPHORECTOMY CARPAL TUNNEL RELEASE Bilateral TOE FUSION BACK SURGERY FINGER SURGERY Medical History Medical History Date Comments Osteoporosis Thyroid disease Cerebral palsy (HCC) Family History Medical History Relation Name Comments Cancer Father Lung disease Mother Relation Name Status Comments Father (Age 79) Mother (Age 82) Social History Date Tobacco Use Types Packs/Day Years Used Never Smoker Smokeless Tobacco: Never Used Drinks/Week oz/Week Comments Alcohol Use Never Alcohol Habits Answer Date Recorded How often do you have a drink containing alcohol? Never 04/27/2019 How many drinks containing alcohol do you have on No t asked a typical day when you are drinking? How often do you have six or more drinks on one Not asked occasion? Sex Assigned at Date Recorded Not on file Last Filed Vital Signs Not on file Plan of Treatment Health Maintenance Due Date Last Done Comments BREAST CANCER SCREENING 2003 COLONOSCOPY SCREENING 2003 SHINGLES VACCINES (#1) 2003 65+ PNEUMOCOCCAL VACCINE 2018 (1 of 1 - PPSV23) INFLUENZA VACCINE 04/23/2020 Results Not on fileafter 07/13/2019 Insurance Type Payer Benefit Subscriber ID Effective Phone Address Plan / Dates Group Medicare MEDICARE MEDICARE [id number] [id number] [place], PART A AND resent [place] B Commercial COMMERCIAL MISC MISC [id number] 2018-P COMMERCIAL resent Advance Directives For more information, please contact: [phone] Patient Vinyl Hanger Explanation Type Date Recorded Advance Directives, Living Will and Medical Power of Shipping Track Supervisor
--- OUTSIDE RECORDS SUMMARY | 2020-07-13 14:31 | XMS REPORT | Continuity of Care Document ---
Author Author [facility] Organization [facility] Address 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 2019-04-27 00:00:[address] Recurrent falls Recurrent falls Disease Active 2019-04-27 00:00:00 Jonah Herrera Spasticity Spasticity Disease Active 2019-04-27 00:00:00 [place] [facility] Hyperlipidemia Hyperlipidemia Problem Active 2018-12-16 00:00:00 [facility] Dry eyes Dry Eyes Problem Active 2018-12-16 00:00:00 [facility] Degeneration of lumbar intervertebral disc Degeneratio n of Lumbar Intervertebral Disc Problem Active 2017-04-02 00:00:00 [facility] Cerebral palsy Cerebral Palsy Problem Active 2016-12-17 00:00:00 [facility] Hypothyroidism Hypothyroidism Problem Active 2016-10-11 00:00:00 [facility] Allergies, Adverse Reactions, Alerts Allergy Name Allergy Type Status Severity Reaction(s) Onset Date Inacti ve Date Treating Clinician Comments Source Penicillins Propensity to adverse reactions to drug Active 2019-04-27 00:00:00 Jonah [place] t PENICILLINS Allergy to substance Active [facility] Family History Family Member Diagnosis Comments Start Date Stop Date Source Natural father Cancer [facility] thodist Natural mother Lung disease Jonah Herrera Social History Social Habit Start Date Stop Date Quantity Comments Source History SDOH Alcohol Std Drinks Jonah Herrera History SDOH Alcohol Binge Jonah Herrera Sex Assigned At Xiang Herrera Tobacco use and exposure 2019-04-27 00:00:00 2019-04-27 00:00:00 Marysol armstrong used Jonah Herrera Alcohol intake 2019-04-27 00:00:00 2019-04-27 00:00:00 Lifetime non-drinker (finding) Jonah Herrera History SDOH Alcohol Frequency 2019-04-27 00:00:00 2019-04-27 00:00:0 0 1 Jonah Herrera Smoking Status Start Date Stop Date Source Never smoker Jonah bautista Medications Ordered Medication Name Filled Medication Name Start Date Stop Da te Current Medication? Ordering Clinician Indication Dosage Frequency Signature (SIG) Comments Components Source vit A/vit C/vit E/zinc/copper (PRESERVISION AREDS ORAL) 2019-04-27 13:11:17 Yes Take by mouth daily. Xiang Herrera krill/om-3/dha/epa/phospho/ast (MEGARED OMEGA-3 KRILL OIL OR AL) 2019-04-27 13:11:17 Yes Take by mouth daily. Jonah Herrera cetirizine (ZyrTEC) 10 MG tablet 2019-04-27 13:11:17 Yes 10mg QD Take 10 mg by mouth daily. Jonah Herrera carboxymethylcellulos/glycerin (REFRESH OPTIVE OPHT) 2 13:11:17 Yes Apply to eye as needed. Jonah Herrera multivitamin (THERAGRAN) tablet 2019-04-27 13:11:17 Yes 1{tbl} QD Take 1 tablet by mouth daily. Jonah Herrera biotin 1 mg capsule 2019-04-27 13:11:17 Yes Take by mouth daily. Jonah Herrera calcium carbonate (CALTRATE 600 ORAL) 2019-04-27 13:11:17 Y es Take by mouth daily. Jonah Herrera mupirocin (BACTROBAN) 2 % ointment 2019-03-12 00:00:00 Yes daily. Jonah Herrera SYNTHROID 88 mcg tablet 2019-02-04 00:00:00 Yes 88ug QD Take 88 mcg by mouth daily. Jonah Herrera RESTASIS 0.05 % ophthalmic emulsion 2019-01-26 00:00:00 Yes Q.5D 2 (two) times a day. Jonah Herrera Caltrate + D3 Plus Minerals Caltrate + D3 Plus Minerals No Caltrate + D3 Plus Minerals [facility] (bovine) collagen (bovine) No chucho agen (bovine) [facility] Fish Oil two tabs twice a day Fish Oil two tabs twice a day No Fish Oil two tabs twice a day [facility] multivitamin one daily multivitamin one daily No multivitamin one daily [facility] ice mupirocin 2 % topical ointment APPLY A SMALL AMOUNT IN THE NOSTRILS AT BEDTIME. mupirocin 2 % topical ointment APPLY A SMALL AMOUNT IN THE NOSTRILS AT BEDTIME. No mupirocin 2 % topical ointment APPLY A SMALL AMOUNT IN THE NOSTRILS AT BEDTIME. [facility] nick Ocuvite 1 tab a day Ocuvite 1 tab a day No Ocuvite 1 tab a day [facility] OneTouch Delica Lancets 30 gauge USE ONCE DAILY OneTou ch Delica Lancets 30 gauge USE ONCE DAILY No OneTouch Delica Lancets 30 gauge USE ONCE DAILY [facility] OneTouch Delica Lancets 33 gauge QD OneTouch Delica Lancets 33 gauge QD No OneTouch Delica Lancets 33 gauge QD [facility] Restasis 0.05 % eye drops in a dropperette Restasis 0. 05 % eye drops in a dropperette No Restasis 0.05 % eye drops in a dropperette [facility] Synthroid 88 mcg tablet Take 1 tablet every day by ora l route for 90 days. Synthroid 88 mcg tablet Take 1 tablet every day by oral route for 90 days. No Synthroid 88 mc g tablet Take 1 tablet every day by oral route for 90 days. [facility] ice True Metrix Glucose Test Strip USE DIRECTED EVERY D AY True Metrix Glucose Test Strip USE DIRECTED EVERY DAY No True Metrix Glucose Test Strip USE DIRECTED EVERY DAY [facility] Immunizations Ordered Immunization Name Filled Immunization Name Date Status Comments Source influenza, high dose seasonal influenza, high dose seasonal 2018 11:33:00 Completed [facility] pneumococcal conjugate PCV 13 pneumococcal conjugate PCV 13 2018 17:08:00 Completed [facility] influenza, injectable, quadrivalent, preservative free influenza, injectable, quadrivalent, preservative free 2018-06-10 10:07:00 Completed [facility] Influenza, injectable, MDCK, quadrivalent Influenza, i njectable, MDCK, quadrivalent 2017-06-20 10:15:44 Completed [facility] Practice Tdap Tdap 2017-01-15 00:00:00 Completed [facility] zoster live zoster live 2016-12-17 11:58:49 Completed [facility] Tdap Tdap 2016-07-09 11:47:37 Completed [facility] influenza, seasonal, injectable, preservative free inf luenza, seasonal, injectable, preservative free 2016-07-09 11:46:54 Completed [facility] Vital Signs Vital Name Observation Time Observation Value Comments Source BP Diastolic 2019-11-27 00:00:00 76 mm[Hg] [facility] Height 2019-11-27 00:00:00 65 [in_i] [facility] BMI (Body Mass Index) 2019-11-27 00:00:00 21.6 kg/m2 [facility] BP Systolic 2019-11-27 00:00:00 128 mm[Hg] [facility] Body Weight 2019-11-27 00:00:00 130 [lb_av] [facility] BP Diastolic 2019-07-23 00:00:00 78 mm[Hg] [facility] Height 2019-07-23 00:00:00 65 [in_i] [facility] BMI (Body Mass Index) 2019-07-23 00:00:00 23.1 kg/m2 [facility] BP Systolic 2019-07-23 00:00:00 116 mm[Hg] [facility] Body Weight 2019-07-23 00:00:00 139 [lb_av] [facility] BP Diastolic 2019-07-07 00:00:00 88 mm[Hg] [facility] Height 2019-07-07 00:00:00 65 [in_i] [facility] BMI (Body Mass Index) 2019-07-07 00:00:00 23.2 kg/m2 [facility] BP Systolic 2019-07-07 00:00:00 124 mm[Hg] [facility] Body Weight 2019-07-07 00:00:00 139.4 [lb_av] [facility] BP Diastolic 2019-03-13 00:00:00 72 mm[Hg] [facility] Height 2019-03-13 00:00:00 65 [in_i] [facility] BMI (Body Mass Index) 2019-03-13 00:00:00 23 kg/m2 [facility] BP Systolic 2019-03-13 00:00:00 114 mm[Hg] [facility] Body Weight 2019-03-13 00:00:00 138 [lb_av] [facility] BP Diastolic 2018-12-16 00:00:00 70 mm[Hg] [facility] Height 2018-12-16 00:00:00 65 [in_i] [facility] BMI (Body Mass Index) 2018-12-16 00:00:00 22.7 kg/m2 [facility] BP Systolic 2018-12-16 00:00:00 110 mm[Hg] [facility] Body Weight 2018-12-16 00:00:00 136.2 [lb_av] [facility] BP Diastolic 2017-12-24 00:00:00 70 mm[Hg] [facility] Height 2017-12-24 00:00:00 67 [in_i] [facility] BMI (Body Mass Index) 2017-12-24 00:00:00 21.3 kg/m2 [facility] BP Systolic 2017-12-24 00:00:00 118 mm[Hg] [facility] Body Weight 2017-12-24 00:00:00 136 [lb_av] [facility] BP Diastolic 2017-08-09 00:00:00 58 mm[Hg] [facility] Height 2017-08-09 00:00:00 67 [in_i] [facility] BMI (Body Mass Index) 2017-08-09 00:00:00 20.8 kg/m2 [facility] BP Systolic 2017-08-09 00:00:00 108 mm[Hg] [facility] Body Weight 2017-08-09 00:00:00 133 [lb_av] [facility] BP Diastolic 2017-07-17 00:00:00 80 mm[Hg] [facility] Height 2017-07-17 00:00:00 67 [in_i] [facility] BMI (Body Mass Index) 2017-07-17 00:00:00 20.8 kg/m2 [facility] BP Systolic 2017-07-17 00:00:00 116 mm[Hg] [facility] Body Weight 2017-07-17 00:00:00 133 [lb_av] [facility] Height 2017-07-03 00:00:00 67 [in_i] [facility] BP Diastolic 2017-06-20 00:00:00 70 mm[Hg] [facility] Height 2017-06-20 00:00:00 67 [in_i] [facility] BMI (Body Mass Index) 2017-06-20 00:00:00 20.7 kg/m2 [facility] BP Systolic 2017-06-20 00:00:00 110 mm[Hg] [facility] Body Weight 2017-06-20 00:00:00 132 [lb_av] [facility] BP Diastolic 2017-02-12 00:00:00 76 mm[Hg] [facility] Height 2017-02-12 00:00:00 67 [in_i] [facility] BMI (Body Mass Index) 2017-02-12 00:00:00 19.9 kg/m2 [facility] BP Systolic 2017-02-12 00:00:00 118 mm[Hg] [facility] Body Weight 2017-02-12 00:00:00 127 [lb_av] [facility] BP Diastolic 2017-01-22 00:00:00 62 mm[Hg] [facility] Height 2017-01-22 00:00:00 67 [in_i] [facility] BP Systolic 2017-01-22 00:00:00 100 mm[Hg] [facility] BP Diastolic 2016-12-20 00:00:00 63 mm[Hg] [facility] Height 2016-12-20 00:00:00 67 [in_i] [facility] BP Systolic 2016-12-20 00:00:00 101 mm[Hg] [facility] BP Diastolic 2016-12-17 00:00:00 67 mm[Hg] [facility] Height 2016-12-17 00:00:00 67 [in_i] [facility] BMI (Body Mass Index) 2016-12-17 00:00:00 20 kg/m2 [facility] BP Systolic 2016-12-17 00:00:00 100 mm[Hg] [facility] Body Weight 2016-12-17 00:00:00 128 [lb_av] [facility] BP Diastolic 2016-10-11 00:00:00 83 mm[Hg] [facility] Height 2016-10-11 00:00:00 67 [in_i] [facility] BP Systolic 2016-10-11 00:00:00 111 mm[Hg] [facility] BP Diastolic 2016-07-09 00:00:00 88 mm[Hg] [facility] Height 2016-07-09 00:00:00 67 [in_i] [facility] BMI (Body Mass Index) 2016-07-09 00:00:00 21.3 kg/m2 [facility] BP Systolic 2016-07-09 00:00:00 127 mm[Hg] [facility] Body Weight 2016-07-09 00:00:00 136 [lb_av] [facility] Procedures Procedure Date / Time Performed Performing Clinician Sourc e Colonoscopy 2018-04-30 00:00:00 [facility] Back Surgery 2017-03-14 00:00:00 [facility] X-RAY HIP UNLIATERAL (2-3 VIEWS) 2017-02-12 00:00:00 [facility] MAMMO, screening, digital, bilateral 2016-07-09 00:00:00 [facility] bone density 2016-07-09 00:00:00 [facility] Eye Surgery 2002-09-23 00:00:00 [facility] Cataract Surgery Complex 2000-09-23 00:00:00 [facility] Eye Surgery 1959-09-23 00:00:00 [facility] Plan of Care Planned Activity Planned Date Details Comments Source Future Scheduled Test 2020-04-23 00:00:00 INFLUENZA VACCINE [code = INFLUENZA VACCINE] [facility] Diagnostic Test Pending 2019-11-27 00:00:00 CBC w/ auto diff [code = CBC w/ auto diff] [facility] Diagnostic Test Pending 2019-11-27 00:00:00 TSH, serum or pl asma [code = TSH, serum or plasma] [facility] Diagnostic Test Pending 2019-11-27 00:00:00 pap, IG + HPV mR NA E6/E7 [code = pap, IG + HPV mRNA E6/E7] [facility] Diagnostic Test Pending 2019-11-27 00:00:00 vitamin D, 25-hy droxy, total, serum [code = vitamin D, 25-hydroxy, total, serum] [facility] Diagnostic Test Pending 2019-11-27 00:00:00 lipid panel, ser um [code = lipid panel, serum] [facility] Diagnostic Test Pending 2019-11-27 00:00:00 CMP, serum or pl asma [code = CMP, serum or plasma] [facility] Future Scheduled Test 2018 00:00:00 65+ PNEUMOCOCCAL V ACCINE (1 of 1 - PPSV23) [code = 65+ PNEUMOCOCCAL VACCINE (1 of 1 - PPSV23)] [facility] Future Scheduled Test 2003 00:00:00 BREAST CANCER SCRE ENING [code = BREAST CANCER SCREENING] [facility] Future Scheduled Test 2003 00:00:00 COLONOSCOPY SCREEN ING [code = COLONOSCOPY SCREENING] [facility] Future Scheduled Test 2003 00:00:00 SHINGLES VACCINES (#1) [code = SHINGLES VACCINES (#1)] [facility] Encounters Start Date/Time End Date/Time Encounter Type Admission Type Attendi [facility] Care Department Encounter ID Source 2019-11-27 00:00:00 2019-11-27 00:00:00 Rossi Rodriguez MD: [address] [place] [id number], Ph. [facility], [facility] [id number] [facility] 2019-07-23 00:00:00 2019-07-23 00:00:00 Mauro Fernández MD: [address] [place] [address], [facility] [id number] [facility] 2019-07-07 00:00:00 2019-07-07 00:00:00 Rossi Rodriguez MD: [address] [place] [address], Ph. [facility] [id number] [facility] 2019-03-13 00:00:00 2019-03-13 00:00:00 Mauro Fernández MD: [address] [place] [address], [facility]. [facility] [id number] [facility] 2018-12-16 00:00:00 2018-12-16 00:00:00 Rossi Rodriguez MD: [address] [place] [address], Ph. [facility] [place] [facility] - [facility] [id number] [facility] 2017-12-24 00:00:00 2017-12-24 00:00:00 Alexandre elmore MD: [address] [place] [address], Ph. [facility] [place] [facility] - [facility] [id number] [facility] 2017-08-09 00:00:00 2017-08-09 00:00:00 Mauro Fernández MD: [address] [place] [address], Ph. [facility] [place] - [facility] - [facility] [id number] [facility] 2017-07-17 00:00:00 2017-07-17 00:00:00 Alexandre elmore MD: [address] [place] [address], [facility] [id number] [facility] 2017-07-03 00:00:00 2017-07-03 00:00:00 Alexandre elmore MD: [address] [place] [address], [facility]. [facility] - [facility] [id number] [facility] 2017-06-20 00:00:00 2017-06-20 00:00:00 Alexandre elmore MD: [address] [place] [address], Ph. [facility] [place] - [facility] - [facility] [id number] [facility] 2017-02-12 00:00:00 2017-02-12 00:00:00 Rossi Rodriguez MD: [address] [place] [address], [facility]. [facility] [id number] [facility] 2017-01-22 00:00:00 2017-01-22 00:00:00 Alexandre elmore MD: [address] [place] [address], Ph. [facility] [id number] [facility] 2016-12-20 00:00:00 2016-12-20 00:00:00 Alexandredoron elmore MD: [address] [place] [address], Ph. [facility] [id number] [facility] 2016-12-17 00:00:00 2016-12-17 00:00:00 Alexandre elmore MD: [address] [place] [address], Ph. [facility] [id number] [facility] 2016-10-11 00:00:00 2016-10-11 00:00:00 Alexandre elmore MD: [address] [place] [address], Ph. [facility] [id number] [facility] 2016-07-09 00:00:00 2016-07-09 00:00:00 Alexandredoron elmore MD: [address] [place] [address], Ph. [facility] [id number] [facility] Results Test Description Test Time Test Comments Results Result Comments Source BREAST ULTRASOUND BILATERAL 2019-07-06 15:02:15 - DIAG MAMM BILATERAL MARY CAD DIGITALBILATERAL DIGITAL DIAGNOSTIC MAMMOGRAM 3D/2D WITH CAD: 07/06/2019CLINICAL: Dense breasts. Digital breast tomosynthesis was performed in addition to routine CC and MLO views. Current mammographic images were evaluated by either a [employer] or a Social[employer] Image[employer]-Fabrication Equipmentcker CAD (computer aided detection system). Comparison is made to exams dated 02/06/2018 mammogram, 09/19/2017 mammogram, and 09/18/2016 mammogram - [facility] The tissue of both breasts is heterogeneously dense. This may lower the sensitivity of mammography. No suspicious mass, architectural distortion, malignant type calcification, or lymph node abnormality detected. INCOMPLETE: ADDITIONAL IMAGING EVALUATION NEEDEDBilateral ultrasound pending for additional evaluation. Resume annual screening mammography in one year. - BREAST ULTRASOUND BILATERALULTRASOUND OF BOTH BREASTS AND BOTH AXILLA: 07/06/2019Comparison is made to exams dated 02/06/2018 mammogram, 09/19/2017 mammogram, and 09/18/2016 mammogram - [facility]-. Real-time ultrasound of both breasts and both axilla and clinical breast exam were performed. No abnormalities were seen sonographically in either breast or either axilla. Clinical breast exam was unremarkable.IMPRESSION: NEGATIVE There is no sonographic evidence of malignancy. Patient has been informed that she has areas of dense breast tissue that could make it difficult to find a small cancer. A screening mammogram and supplemental ultrasound for dense breast tissue is recommended in 1 year.Nela Pham M.D. dm/:07/06/2019 15: 02:15 copy to: Rossi Rodriguez M.D., ph: [phone], fax: [phone] Technologist: Iesha Watson , [facility]- letter sent: BIRADS 1-2 Combo FU Letter Mammogram BI-RADS: 0 Incomplete: Additional Imaging Evaluation Needed Ultrasound BI-RADS: 1 Negative DIAG MAMM BILATERAL MARY CAD DIGITAL 2019-07-06 15:02:15 - DIAG MAMM BILATERAL MARY CAD DIGITALBILATERAL DIGITAL DIAGNOSTIC MAMMOGRAM 3D/2D WITH CAD: 07/06/2019CLINICAL: Dense breasts. Digital breast tomosynthesis was performed in addition to routine CC and MLO views. Current mammographic images were evaluated by either a [employer] M-Vu or a [employer] CAD (computer aided detection system). Comparison is made to exams dated 02/06/2018 mammogram, 09/19/2017 mammogram, and [facility] The tissue of both breasts is heterogeneously dense. This may lower the sensitivity of mammography. No suspicious mass, architectural distortion, malignant type calcification, or lymph node abnormality detected. INCOMPLETE: ADDITIONAL IMAGING EVALUATION NEEDEDBilateral ultrasound pending for additional evaluation. Resume annual screening mammography in one year. - BREAST ULTRASOUND BILATERALULTRASOUND OF BOTH BREASTS AND BOTH AXILLA: 07/06/2019Comparison is made to exams dated 02/06/2018 mammogram, 09/19/2017 mammogram, and [facility]18[facility] Real-time ultrasound of both breasts and both axilla and clinical breast exam were performed. No abnormalities were seen sonographically in either breast or either axilla. Clinical breast exam was unremarkable.IMPRESSION: NEGATIVE There is no sonographic evidence of malignancy. Patient has been informed that she has areas of dense breast tissue that could make it difficult to find a small cancer. A screening mammogram and supplemental ultrasound for dense breast tissue is recommended in 1 year.Nela Pham M.D. dm/:07/06/2019 15: 02:15 copy to: Rossi Rodriguez M.D., ph: [phone], fax: [phone] Technologist: Iesha Watson , [facility]letter sent: BIRADS 1-2 Combo FU Letter Mammogram BI-RADS: 0 Incomplete: Additional Imaging Evaluation Needed Ultrasound BI-RADS: 1 Negative CHEST 2 VIEWS 2019-03-16 16:02:00 [place] [address] Patient Name: HAO REINOSO MR #: [id number] : 1955 Age/Sex: 63/F Req #: [id number] Adm Physician: Ordered by: JAMI CLAY MD Report #: [id number] Location: OR Room/Bed: Procedure: [id number] DX/CHEST 2 VIEWS Exam Date: Exam Time: REPORT STATUS: Signed EXAMINATION: PA and lateral views of the chest. Comparison examination: None available. Clinical indication: Preoperative study for fifth digit surgery. Findings: The lungs are well-inflated and without focal airspace consolidation, pleural effusion, or pneumothorax. Cardiomediastinal contour and pulmonary vasculature are within normal limits. No acute osseous abnormality. Degenerative disc changes of the partially visualized lumbar spine. IMPRESSION: No acute cardiopulmonary abnormalities. Signed by: Dr. Jami Álvarez M.D. on 03/16/2019 4:04 PM Dictated By: JAMI ÁLVAREZ MD 1609 Transcribed By: LANIE on 03/16/19 1609 COPY TO: JAMI CLAY MD Lipid 1996 panel - Serum or Plasma 2018-12-17 17:13:00 Test Item HDL (test code = HDL) 93 mg/dL 40-60 H triglyceride (test code = triglyceride) 66 mg/dL 0-149 VLDL calc. (test code = VLDL calc.) 13 mg/dL cholesterol/HDL ratio (test code = cholesterol/HDL ratio) 2.5 mg/dL non-HDL cholesterol calc. (test code = non-HDL cholesterol c alc.) 142 mg/dL 0-160 cholesterol (test code = cholesterol) 235 mg/dL 0-199 H Cholesterol in LDL [Mass/volume] in Serum or Plasma (t est code = 2089-1) 129 mg/dL 0-130 [facility] - Serum or Plasma 2018-12-17 16:12:00* Test Item Value Reference Range Interpretation Comments ALT (test code = ALT) 21 U/L 0-55 AST (test code = AST) 27 U/L 5-34 BUN (test code = BUN) 11.1 mg/dL 9.8-20.1 alk phos (test code = alk phos) 116 unit/L 40-150 glucose (test code = glucose) 101 mg/dL 70-99 H albumin (test code = albumin) 4.0 g/dL 3.5-5.0 creatinine (test code = creatinine) 0.74 mg/dL 0.57-1.11 eGFR non- (test code = eGFR non-) > 60 total bilirubin (test code = total bilirubin) 0.6 mg/dL 0.2-1.2 eGFR - (test code = eGFR - ) >60 sodium (test code = sodium) 139 mEq/L 136-145 potassium (test code = potassium) 4.2 mEq/L 3.5-5.1 chloride (test code = chloride) 104 mmol/L 98-107 total protein (test code = total protein) 7.3 g/dL 6.4-8.3 calcium (test code = calcium) 10.0 mg/dL 8.4-10.2 CO2 (test code = CO2) 26.7 mmol/L 23.0-31.0 anion gap (test code = anion gap) 8 calc [facility] [Units/volume] in Serum or [id number] 16:12:00* Test Item Value Reference Range Interpretation Comments TSH (test code = TSH) 1.061 uIU/mL 0.350-4.940 [facility] - [facility] or Plasma 2017-07-18 16:04:00* Test Item Value Reference Range Interpretation Comments ALT (test code = ALT) 27 U/L 0-55 AST (test code = AST) 31 U/L 5-34 BUN (test code = BUN) 15.3 mg/dL 9.8-20.1 alk phos (test code = alk phos) 85 unit/L 40-150 glucose (test code = glucose) 103 mg/dL 70-99 H albumin (test code = albumin) 3.9 g/dL 3.5-5.0 creatinine (test code = creatinine) 0.72 mg/dL 0.57-1.11 eGFR non- (test code = eGFR non-) > 60 >60 total bilirubin (test code = total bilirubin) 0.6 mg/dL 0.2-1.2 eGFR - (test code = eGFR - ) >60 >60 sodium (test code = sodium) 143 mEq/L 136-145 potassium (test code = potassium) 4.5 mEq/L 3.5-5.1 chloride (test code = chloride) 108 mmol/L 98-107 H total protein (test code = total protein) 7.2 g/dL 6.4-8.3 calcium (test code = calcium) 9.3 mg/dL 8.4-10.2 CO2 (test code = CO2) 26.2 mmol/L 23.0-31.0 anion gap (test code = anion gap) 9 calc [facility] - Serum or [id number] 16:04:00* Test Item Value Reference Range Interpretation Comments HDL (test code = HDL) 97 mg/dL 40-60 H triglyceride (test code = triglyceride) 53 mg/dL 0-149 VLDL calc. (test code = VLDL calc.) 11 mg/dL cholesterol/HDL ratio (test code = cholesterol/HDL ratio) 2.4 mg/dL non-HDL cholesterol calc. (test code = non-HDL cholesterol c alc.) 135 mg/dL 0-160 cholesterol (test code = cholesterol) 232 mg/dL 0-199 H LDL calc. (test code = LDL calc.) 124 mg/dL 0-130 [facility] - [id number] 15:51:00 * Test Item Value Reference Range Interpretation Comments WBC (test code = WBC) 5.99 x10*3/?L 3.98-10.04 RBC (test code = RBC) 4.60 10*12/L 3.93-5.22 hemoglobin (test code = hemoglobin) 13.00 g/dL 11.20-15.70 hematocrit (test code = hematocrit) 40.6 % 34.1-44.9 MCV (test code = MCV) 88.3 fL 80.0-100.0 MCH (test code = MCH) 28.3 pg 25.6-32.2 MCHC (test code = MCHC) 32.0 g/dL 32.2-35.5 L RDW-SD (test code = RDW-SD) 51.2 fL 36.4-46.3 H platelet count (test code = platelet count) 289.0 k/uL 182.0-369. 0 MPV (test code = MPV) 12.0 fL 7.5-11.5 H neut% (test code = neut%) 45.8 % 34.0-71.1 lymph% (test code = lymph%) 42.4 % 19.3-51.7 mon% (test code = mon%) 8.5 % 4.7-12.5 eos% (test code = eos%) 2.5 % 0.7-5.8 baso% (test code = baso%) 0.8 % 0.1-1.2 neut# (test code = neut#) 2.7 x10*3/?L 1.6-6.1 lymph# (test code = lymph#) 2.5 x10*3/?L 1.2-3.7 mon# (test code = mon#) 0.5 x10*3/?L 0.2-0.9 eos# (test code = eos#) 0.15 x10*3/?L 0.04-0.36 baso# (test code = baso#) 0.05 x10*3/?L 0.01-0.08 [facility]Thy[facility] [Units/volume] in Serum or [id number] 16:45:00* Test Item Value Reference Range Interpretation Comments TSH (test code = TSH) 2.089 uIU/mL 0.350-4.940 [facility] - Serum or Plasma 2016-12-18 17:31:00* Test Item Value Reference Range Interpretation Comments ALT (test code = ALT) 25 U/L 0-55 AST (test code = AST) 27 U/L 5-34 BUN (test code = BUN) 17 mg/dL 7-20 alk phos (test code = alk phos) 109 unit/L 40-150 glucose (test code = glucose) 101 mg/dL 70-99 H albumin (test code = albumin) 3.9 g/dL 3.5-5.0 creatinine (test code = creatinine) 0.73 mg/dL 0.57-1.11 eGFR non- (test code = eGFR non-) > 60 >60 total bilirubin (test code = total bilirubin) 0.6 mg/dL 0.2-1.2 eGFR - (test code = eGFR - ) >60 >60 sodium (test code = sodium) 142 mEq/L 137-144 potassium (test code = potassium) 4.3 mEq/L 3.5-5.0 chloride (test code = chloride) 106 mmol/L 101-110 total protein (test code = total protein) 7.1 g/dL 6.4-8.3 calcium (test code = calcium) 8.9 mg/dL 8.4-10.2 CO2 (test code = CO2) 25.7 mmol/L 22.0-31.0 anion gap (test code = anion gap) 10 calc [facility] - Serum or [id number] 17:31:00* Test Item Value Reference Range Interpretation Comments HDL (test code = HDL) 90 mg/dL 40-60 H triglyceride (test code = triglyceride) 51 mg/dL 0-149 VLDL calc. (test code = VLDL calc.) 10 mg/dL cholesterol/HDL ratio (test code = cholesterol/HDL ratio) 2 mg/dL non-HDL cholesterol calc. (test code = non-HDL cholesterol c alc.) 133 mg/dL 0-160 cholesterol (test code = cholesterol) 223 mg/dL 0-199 H LDL calc. (test code = LDL calc.) 123 mg/dL 0-130 [facility] [Units/volume] in Serum or [id number] 17:31:00* Test Item Value Reference Range Interpretation Comments TSH (test code = TSH) 1.358 uIU/mL 0.350-4.940 [facility] Differential panel - [id number] 17:17:00 * Test Item Value Reference Range Interpretation Comments WBC (test code = WBC) 10.57 x10*3/?L 2.60-11.20 RBC (test code = RBC) 4.41 10*12/L 3.93-5.87 hemoglobin (test code = hemoglobin) 12.60 g/dL 10.70-15.70 hematocrit (test code = hematocrit) 37.9 % 33.2-46.8 MCV (test code = MCV) 85.9 fL 77.8-103.4 MCH (test code = MCH) 28.6 pg 24.8-35.0 MCHC (test code = MCHC) 33.2 g/dL 31.5-35.9 RDW-SD (test code = RDW-SD) 45.9 fL 35.8-50.4 platelet count (test code = platelet count) 286.0 k/uL 126.7-416. 1 MPV (test code = MPV) 11.0 fL 8.3-13.5 neut% (test code = neut%) 62.2 % 39.5-76.9 lymph% (test code = lymph%) 25.4 % 12.6-45.8 mon% (test code = mon%) 10.8 % 3.7-12.9 eos% (test code = eos%) 1.1 % 0.7-6.4 baso% (test code = baso%) 0.5 % 0.1-1.5 neut# (test code = neut#) 6.6 x10*3/?L 0.6-7.6 lymph# (test code = lymph#) 2.7 x10*3/?L 0.7-3.3 mon# (test code = mon#) 1.1 x10*3/?L 0.2-1.0 H eos# (test code = eos#) 0.12 x10*3/?L 0.04-0.44 baso# (test code = baso#) 0.05 x10*3/?L 0.01-0.08 [facility] + [facility] mRNA E6/E7 + reflex HPV (16+18+45) 2016-07-12 14:45:00* Test Item Value Reference Range Interpretation Comments clinical information: (test code = clinical information:) cve LMP: (test code = LMP:) menopause prev. Pap: (test code = prev. Pap:) prev. BX: (test code = prev. 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:) [facility] [Units/volume] in Serum or [id number] 13:39:00* Test Item Value Reference Range Interpretation Comments TSH (test code = TSH) 4.99 mIU/L 0.40-4.50 H [facility] - Serum or [id number] 13:39:00* Test Item Value Reference Range Interpretation Comments cholesterol, total (test code = cholesterol, total) 200 mg/dL 12 5-200 HDL cholesterol (test code = HDL cholesterol) 97 mg/dL > or = 4 6 triglycerides (test code = triglycerides) 56 mg/dL <150 LDL-cholesterol (test code = LDL-cholesterol) 92 mg/dL (calc) <130 chol/HDLC ratio (test code = chol/HDLC ratio) 2.1 (calc) < or = 5 .0 non HDL cholesterol (test code = non HDL cholesterol) 103 mg/dL (ca lc) [facility] 1999 [facility] - Serum or Plasma 2016-07-12 13:39:00* Test Item Value Reference Range Interpretation Comments glucose (test code = glucose) 103 mg/dL 65-99 H urea nitrogen (BUN) (test code = urea nitrogen (BUN)) 15 mg/dL 7-25 creatinine (test code = creatinine) 0.66 mg/dL 0.50-0.99 eGFR non-afr. swazi (test code = eGFR non-afr. swazi) 95 mL/min/1.73m2 > or = 60 eGFR (test code = eGFR ) 11 0 mL/min/1.73m2 > or = 60 BUN/creatinine ratio (test code = BUN/creatinine ratio) not applica ble 6-22 sodium (test code = sodium) 145 mmol/L 135-146 potassium (test code = potassium) 4.4 mmol/L 3.5-5.3 chloride (test code = chloride) 106 mmol/L 98-110 carbon dioxide (test code = carbon dioxide) 29 mmol/L 20-31 calcium (test code = calcium) 9.5 mg/dL 8.6-10.4 protein, total (test code = protein, total) 6.9 g/dL 6.1-8.1 albumin (test code = albumin) 4.3 g/dL 3.6-5.1 globulin (test code = globulin) 2.6 g/dL (calc) 1.9-3.7 albumin/globulin ratio (test code = albumin/globulin ratio) 1.7 (calc) 1.0-2.5 bilirubin, total (test code = bilirubin, total) 0.7 mg/dL 0.2-1. 2 alkaline phosphatase (test code = alkaline phosphatase) 101 U/L 33-130 AST (test code = AST) 29 U/L 10-35 ALT (test code = ALT) 23 U/L 6-29 [facility] W Auto Differential panel - [id number] 13:39:00 * Test Item Value Reference Range Interpretation Comments white blood cell count (test code = white blood cell count) [facility] W Auto Differential panel - [id number] 17:57:00 * Test Item Value Reference Range Interpretation Comments WBC (test code = WBC) 5.85 x10*3/?L 2.60-11.20 RBC (test code = RBC) 4.77 10*12/L 3.93-5.87 hemoglobin (test code = hemoglobin) 13.6 g/dL 10.7-15.7 hematocrit (test code = hematocrit) 41.5 % 33.2-46.8 MCV (test code = MCV) 87.0 fL 77.8-103.4 MCH (test code = MCH) 28.5 pg 24.8-35.0 MCHC (test code = MCHC) 32.8 g/dL 31.5-35.9 RDW-SD (test code = RDW-SD) 45.1 fL 35.8-50.4 platelet count (test code = platelet count) 286.0 k/uL 126.7-416. 1 MPV (test code = MPV) 11.5 fL 8.3-13.5 neut% (test code = neut%) 45.1 % 39.5-76.9 lymph% (test code = lymph%) 39.8 % 12.6-45.8 mon% (test code = mon%) 10.3 % 3.7-12.9 eos% (test code = eos%) 3.900 % 0.001-6.400 baso% (test code = baso%) 0.9 % 0.0-1.5 neut# (test code = neut#) 2.6 x10*3/?L 0.6-7.6 lymph# (test code = lymph#) 2.3 x10*3/?L 0.7-3.3 mon# (test code = mon#) 0.6 x10*3/?L 0.2-1.0 eos# (test code = eos#) 0.23 x10*3/?L 0.00-0.44 baso# (test code = baso#) 0.050 x10*3/?L 0.001-0.080 [facility]
[2020-07-13 14:41] LABS: THYROID STIMULATING HORMONE 8.238 uIU/mL (0.350-4.940)
[2020-07-13] MEDS ORDERED: MORPHINE SULFATE INJ 4 MG/ML INJ 1ML IV PRN (15:45)
[2020-07-13] MEDS ORDERED: ONDANSETRON HCL INJ 2MG/ML 2ML 2 MG/ML VIAL IV PRN (15:45)
--- OUTSIDE RECORDS SUMMARY | 2020-07-13 16:00 | XMS REPORT | Clinical Summary ---
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
--- OUTSIDE RECORDS SUMMARY | 2020-07-13 16:00 | XMS REPORT | Continuity of Care Document ---
Author Author [facility] Organization [facility] Address 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 2019-04-27 00:00:[address] Recurrent falls Recurrent falls Disease Active 2019-04-27 00:00:00 Jonah Herrera Spasticity Spasticity Disease Active 2019-04-27 00:00:00 [place] [employer] Hyperlipidemia Hyperlipidemia Problem Active 2018-12-16 00:00:00 [facility] Dry eyes Dry Eyes Problem Active 2018-12-16 00:00:00 [facility] Degeneration of lumbar intervertebral disc Degeneratio n of Lumbar Intervertebral Disc Problem Active 2017-04-02 00:00:00 [facility] Cerebral palsy Cerebral Palsy Problem Active 2016-12-17 00:00:00 [facility] Hypothyroidism Hypothyroidism Problem Active 2016-10-11 00:00:00 [facility] Allergies, Adverse Reactions, Alerts Allergy Name Allergy Type Status Severity Reaction(s) Onset Date Inacti ve Date Treating Clinician Comments Source Penicillins Propensity to adverse reactions to drug Active 2019-04-27 00:00:00 Jonah [place] t PENICILLINS Allergy to substance Active [facility] Family History Family Member Diagnosis Comments Start Date Stop Date Source Natural father Cancer [facility] thodist Natural mother Lung disease Jonah [...] Minerals No Caltrate + D3 Plus Minerals [facility] ice collagen (bovine) collagen (bovine) No chucho agen (bovine) [facility] Fish Oil two tabs twice a day Fish Oil two tabs twice a day No Fish Oil two tabs twice a day [facility] multivitamin one daily multivitamin one daily No multivitamin one daily [facility] ice mupirocin 2 % topical ointment APPLY A SMALL AMOUNT IN THE NOSTRILS AT BEDTIME. mupirocin 2 % topical ointment APPLY A SMALL AMOUNT IN THE NOSTRILS AT BEDTIME. No mupirocin 2 % topical ointment APPLY A SMALL AMOUNT IN THE NOSTRILS AT BEDTIME. [facility] nick Ocuvite 1 tab a day Ocuvite 1 tab a day No Ocuvite 1 tab a day [facility] OneTouch Delica Lancets 30 gauge USE ONCE DAILY OneTou ch Delica Lancets 30 gauge USE ONCE DAILY No OneTouch Delica Lancets 30 gauge USE ONCE DAILY [facility] OneTouch Delica Lancets 33 gauge QD OneTouch Delica Lancets 33 gauge QD No OneTouch Delica Lancets 33 gauge QD [facility] Restasis 0.05 % eye drops in a dropperette Restasis 0. 05 % eye drops in a dropperette No Restasis 0.05 % eye drops in a dropperette [facility] Synthroid 88 mcg tablet Take 1 tablet every day by ora l route for 90 days. Synthroid 88 mcg tablet Take 1 tablet every day by oral route for 90 days. No Synthroid 88 mc g tablet Take 1 tablet every day by oral route for 90 days. [facility] ice True Metrix Glucose Test Strip USE DIRECTED EVERY D AY True Metrix Glucose Test Strip USE DIRECTED EVERY DAY No True Metrix Glucose Test Strip USE DIRECTED EVERY DAY [facility] Immunizations Ordered Immunization Name Filled Immunization Name Date Status Comments Source influenza, high dose seasonal influenza, high dose seasonal 2018 11:33:00 Completed [facility] pneumococcal conjugate PCV 13 pneumococcal conjugate PCV 13 2018 17:08:00 Completed [facility] influenza, injectable, quadrivalent, preservative free influenza, injectable, quadrivalent, preservative free 2018-06-10 10:07:00 Completed [facility] Influenza, injectable, MDCK, quadrivalent Influenza, i njectable, MDCK, quadrivalent 2017-06-20 10:15:44 Completed [facility] ly Practice Tdap Tdap 2017-01-15 00:00:00 Completed [facility] zoster live zoster live 2016-12-17 11:58:49 Completed [facility] Tdap Tdap 2016-07-09 11:47:37 Completed [facility] influenza, seasonal, injectable, preservative free inf luenza, seasonal, injectable, preservative free 2016-07-09 11:46:54 Completed [facility] Vital Signs Vital Name Observation Time Observation Value Comments Source BP Diastolic 2019-11-27 00:00:00 76 mm[Hg] [facility] Height 2019-11-27 00:00:00 65 [in_i] [facility] BMI (Body Mass Index) 2019-11-27 00:00:00 21.6 kg/m2 [facility] BP Systolic 2019-11-27 00:00:00 128 mm[Hg] [facility] Body Weight 2019-11-27 00:00:00 130 [lb_av] [facility] BP Diastolic 2019-07-23 00:00:00 78 mm[Hg] [facility] Height 2019-07-23 00:00:00 65 [in_i] [facility] BMI (Body Mass Index) 2019-07-23 00:00:00 23.1 kg/m2 [facility] BP Systolic 2019-07-23 00:00:00 116 mm[Hg] [facility] Body Weight 2019-07-23 00:00:00 139 [lb_av] [facility] BP Diastolic 2019-07-07 00:00:00 88 mm[Hg] [facility] Height 2019-07-07 00:00:00 65 [in_i] [facility] BMI (Body Mass Index) 2019-07-07 00:00:00 23.2 kg/m2 [facility] BP Systolic 2019-07-07 00:00:00 124 mm[Hg] [facility] Body Weight 2019-07-07 00:00:00 139.4 [lb_av] [facility] BP Diastolic 2019-03-13 00:00:00 72 mm[Hg] [facility] Height 2019-03-13 00:00:00 65 [in_i] [facility] BMI (Body Mass Index) 2019-03-13 [...] Practice BP Diastolic 2016-07-09 00:00:00 88 mm[Hg] [facility] Height 2016-07-09 00:00:00 67 [in_i] [facility] BMI (Body Mass Index) 2016-07-09 00:00:00 21.3 kg/m2 [facility] BP Systolic 2016-07-09 00:00:00 127 mm[Hg] [facility] Body Weight 2016-07-09 00:00:00 136 [lb_av] [facility] Procedures Procedure Date / Time Performed Performing Clinician Sourc e Colonoscopy 2018-04-30 00:00:00 [facility] Back Surgery 2017-03-14 00:00:00 [facility] X-RAY HIP UNLIATERAL (2-3 VIEWS) 2017-02-12 00:00:00 [facility] MAMMO, screening, digital, bilateral 2016-07-09 00:00:00 [facility] bone density 2016-07-09 00:00:00 [facility] Eye Surgery 2002-09-23 00:00:00 [facility] Cataract Surgery Complex 2000-09-23 00:00:00 [facility] Eye Surgery 1959-09-23 00:00:00 [facility] Plan of Care Planned Activity Planned Date Details Comments Source Future Scheduled Test 2020-04-23 00:00:00 INFLUENZA VACCINE [code = INFLUENZA VACCINE] [facility] Diagnostic Test Pending 2019-11-27 00:00:00 CBC w/ auto diff [code = CBC w/ auto diff] [facility] Diagnostic Test Pending 2019-11-27 00:00:00 TSH, serum or pl asma [code = TSH, serum or plasma] [facility] Diagnostic Test Pending 2019-11-27 00:00:00 pap, IG + HPV mR NA E6/E7 [code = pap, IG + HPV mRNA E6/E7] [facility] Diagnostic Test Pending 2019-11-27 00:00:00 vitamin D, 25-hy droxy, total, serum [code = vitamin D, 25-hydroxy, total, serum] [facility] Diagnostic Test Pending 2019-11-27 00:00:00 lipid panel, ser um [code = lipid panel, serum] [facility] Diagnostic Test Pending 2019-11-27 00:00:00 CMP, serum or pl asma [code = CMP, serum or plasma] [facility] Future Scheduled Test 2018 00:00:00 65+ PNEUMOCOCCAL V ACCINE (1 of 1 - PPSV23) [code = 65+ PNEUMOCOCCAL VACCINE (1 of 1 - PPSV23)] [facility] Future Scheduled Test 2003 00:00:00 BREAST CANCER SCRE ENING [code = BREAST CANCER SCREENING] [facility] Future Scheduled Test 2003 00:00:00 COLONOSCOPY SCREEN ING [code = COLONOSCOPY SCREENING] [facility] Future Scheduled Test 2003 00:00:00 SHINGLES VACCINES (#1) [code = SHINGLES VACCINES (#1)] [facility] Encounters Start Date/Time End Date/Time Encounter Type Admission Type [facility] Care Department Encounter ID Source 2019-11-27 00:00:00 2019-11-27 00:00:00 Rossi Rodriguez MD: [address] [place] [address], Ph. [facility] [id number] [facility] 2019-07-23 00:00:00 2019-07-23 00:00:00 Mauro Fernández MD: [address] [place] [address], Ph. [facility] [id number] [facility] 2019-07-07 00:00:00 2019-07-07 00:00:00 Rossi Rodriguez MD: [address] [place] [address], Ph. [facility] [id number] [facility] 2019-03-13 00:00:00 2019-03-13 00:00:00 Mauro Fernández MD: [address] [place] [address], Ph. [facility] [id number] [facility] 2018-12-16 00:00:00 2018-12-16 00:00:00 Rossi Rodriguez MD: [address] [place] [address], Ph. [facility] [place] [facility] [id number] [facility] 2017-12-24 00:00:00 2017-12-24 00:00:00 Alexandre elmore MD: [address] [place] [address], Ph. [facility] [place] [facility] [id number] [facility] 2017-08-09 00:00:00 2017-08-09 00:00:00 Mauro Fernández MD: [address] [place] [address], Ph. [facility] [place] [facility] [id number] [facility] 2017-07-17 00:00:00 2017-07-17 00:00:00 Alexandre elmore MD: [address] [place] [address], [facility]. [facility] [id number] [facility] 2017-07-03 00:00:00 2017-07-03 00:00:00 Alexandre elmore MD: [address] [place] [address], [facility]. [facility] [id number] [facility] 2017-06-20 00:00:00 2017-06-20 00:00:00 Alexandre elmore MD: [address] [place] [address], Ph. [facility] [place] - [facility] [id number] [facility] 2017-02-12 00:00:00 2017-02-12 00:00:00 Rossi Rodriguez MD: [address] [place] [address], [facility]. [facility] [id number] [facility] 2017-01-22 00:00:00 2017-01-22 00:00:00 Alexandre elmore MD: [address] [place] [address], Ph. [facility] [id number] [facility] 2016-12-20 00:00:00 2016-12-20 00:00:00 Alexandredoron elmore MD: [address] [place] [address], Ph. [facility] [id number] [facility] 2016-12-17 00:00:00 2016-12-17 00:00:00 Alexandre elmore MD: [address] [place] [address], Ph. [facility] [id number] [facility] 2016-10-11 00:00:00 2016-10-11 00:00:00 Alexandre elmore MD: [address] [place] [address], Ph. [facility] [id number] [facility] 2016-07-09 00:00:00 2016-07-09 00:00:00 Alexandredoron elmore MD: [address] [place] [address], Ph. [facility] [id number] [facility] Results Test Description Test Time Test Comments Results Result Comments Source BREAST ULTRASOUND BILATERAL 2019-07-06 15:02:15 - DIAG MAMM BILATERAL MARY CAD DIGITALBILATERAL DIGITAL DIAGNOSTIC MAMMOGRAM 3D/2D WITH CAD: 07/06/2019CLINICAL: Dense breasts. Digital breast tomosynthesis was performed in addition to routine CC and MLO views. Current mammographic images were evaluated by either a mo9 (moKredit)-Vu or a AMERICAN PET RESORT ImagePlixicker CAD (computer aided detection system). Comparison is made to exams dated 02/06/2018 mammogram, 09/19/2017 mammogram, and 09/18/2016 mammogram - [facility]-. The tissue of both breasts [...] 09/19/2017 mammogram, and 09/18/2016 mammogram - [facility]-. Real-time ultrasound of both breasts [...] 02:15 copy to: Rossi Rodriguez M.D., ph: [phone], fax: [phone] Technologist: Iesha Watson , [facility]- letter sent: BIRADS 1-2 Combo [...] mammographic images were evaluated by either a Lost My Name M-Vu or a AMER[employer] PET RESORT ImageChecker CAD (computer aided detection system). Comparison is made to exams dated 02/06/2018 mammogram, 09/19/2017 mammogram, and [facility] The tissue of both breasts is heterogeneously [...] 09/19/2017 mammogram, and [facility]/18[facility]2016 [facility]. Real-time ultrasound of both breasts and both [...] 02:15 copy to: Rossi Rodriguez M.D., ph: [phone], fax: [phone] Technologist: Iesha Watson , [facility]letter sent: BIRADS 1-2 Combo FU Letter Mammogram BI-RADS: 0 Incomplete: Additional Imaging Evaluation Needed Ultrasound BI-RADS: 1 Negative CHEST 2 VIEWS 2019-03-16 16:02:00 [place] [address] Patient Name: HAO REINOSO MR #: [id number] : 1955 Age/Sex: 63/F Req #: [id number] Adm Physician: Ordered by: JAMI CLAY MD Report #: [id number] Location: OR Room/Bed: Procedure: [id number] DX/CHEST 2 VIEWS Exam Date: Exam Time: [...] 4:04 PM Dictated By: JAMI ÁLVAREZ MD 1603 Transcribed By: LANIE on 03/16/19 1605 COPY TO: JAMI CLAY MD Lipid 1996 [...] est code = 2089-1) 129 mg/dL 0-130 [facility] panel - Serum or Plasma [...] (test code = anion gap) 8 calc [facility] WomenThyrotropin [Units/volume] in Serum or [id number] 16:12:00* Test Item Value Reference Range Interpretation Comments TSH (test code = TSH) 1.061 uIU/mL 0.350-4.940 [facility] WomenCom[facility] 2000 panel - Serum or Plasma [...] (test code = anion gap) 9 calc [facility] Women[facility] 1996 panel - Serum or [id number] 16:04:00* Test Item Value Reference Range Interpretation [...] code = LDL calc.) 124 mg/dL 0-130 [facility] WomenCB W Auto Differential panel - [id number] 15:51:00 * Test Item Value Reference Range [...] (test code = baso#) 0.05 x10*3/?L 0.01-0.08 [facility] WomenThyrotropin [Units/volume] in Serum or [id number] 16:45:00* Test Item Value Reference Range Interpretation Comments TSH (test code = TSH) 2.089 uIU/mL 0.350-4.940 [facility] WomenCom[facility] metabolic 2000 panel - Serum or Plasma [...] (test code = anion gap) 10 calc [facility] WomenLipid 1996 panel - Serum or [id number] 17:31:00* Test Item Value Reference Range Interpretation [...] code = LDL calc.) 123 mg/dL 0-130 [facility] WomenThyrotropin [Units/volume] in Serum or [id number] 17:31:00* Test Item Value Reference Range Interpretation Comments TSH (test code = TSH) 1.358 uIU/mL 0.350-4.940 [facility] WomenCB W Auto Differential panel - [id number] 17:17:00 * Test Item Value Reference Range [...] (test code = baso#) 0.05 x10*3/?L 0.01-0.08 [facility] Womenpap, IG + HPV mRNA E6/E7 + reflex [...] = interpretation/result:) comment: (test code = comment:) rn x ray: (test code = rn x ray:) [facility] WomenThyrotropin [Units/volume] in Serum or [id number] 13:39:00* Test Item Value Reference Range Interpretation Comments TSH (test code = TSH) 4.99 mIU/L 0.40-4.50 H [facility] WomenLipid 1995 panel - Serum or [id number] 13:39:00* Test Item Value Reference Range Interpretation [...] non HDL cholesterol) 103 mg/dL (ca lc) [facility] WomenCom[facility] 1999 panel - Serum or Plasma 2016-07-12 13:39:00* Test Item Value Reference Range Interpretation Comments glucose (test code = glucose) 103 mg/dL 65-99 H urea nitrogen (BUN) (test code = urea nitrogen (BUN)) 15 mg/dL 7-25 creatinine (test code = creatinine) 0.66 mg/dL 0.50-0.99 eGFR non-afr. central african (test code = eGFR non-afr. central african) 95 mL/min/1.73m2 > or = 60 eGFR [...] (test code = ALT) 23 U/L 6-29 [facility] W Auto Differential panel - [id number] 13:39:00 * Test Item Value Reference Range Interpretation Comments white blood cell count (test code = white blood cell count) [facility] W Auto Differential panel - [id number] 17:57:00 * Test Item Value Reference Range [...] (test code = baso#) 0.050 x10*3/?L 0.001-0.080 [facility]
[2020-07-13] MEDS: SODIUM CHLORIDE 0.9% 1000ML 1,000 ML IV SCH (16:05)
[2020-07-13 16:11] LABS: CREATINE KINASE MB 2.4 ng/mL (0-5.0)
[2020-07-13 18:11] VITALS: BP 126/73
--- NOTE | 2020-07-13 18:14 | NUR ---
AAOX3. ACYANOTIC. PATIENT ARRIVED TO UNIT AT APPROXIMATELY 181. ASSUMED CARE. NO DISTRESS NOTED. CALL LIGHT IN REACH. SIDE RAILS UP X2. BED LOW AND LOCKED. PATIENT'S SON PRESENT AT BEDSIDE.
--- NOTE | 2020-07-13 19:05 | NUR ---
Patient visited in room during nursing rounds. Patient just arrived around 1809 as a new admit with dx of intractable lower back pain and sciatica. Pt alert and oriented x3. On bed rest at this time. Pt states when she tries to ambulate her back starts to hurt and also her legs. Pt on IVF (NS at 100ml/hr). Will medicate pt accordingly for pain. Call barron within reach.
[2020-07-13 20:00] VITALS: BP 109/70
[2020-07-13] MEDS ORDERED: HYDRALAZINE HCL 20 MG/ML VIAL IV PRN (20:15)
[2020-07-13] MEDS ORDERED: MELATONIN 5 MG TABLET PO PRN (20:15)
[2020-07-13] MEDS ORDERED: GABAPENTIN 300 MG CAP PO SCH (20:15)
[2020-07-13] MEDS ORDERED: ACETAMINOPHEN 325 MG TAB PO PRN (20:15)
[2020-07-13 21:00] VITALS: BP 109/70
--- NOTE | 2020-07-13 21:00 | NUR ---
Pt informed and aware she needs to be NPO at midnight tonight (07/14/20) per MD order in preparation for MRI of lumbar spine (w/o contrast).
[2020-07-13] MEDS: KETOROLAC TROMETHAMINE 30 MG/ML VIAL IV PRN (21:40)
--- NOTE | 2020-07-13 22:23 | Diagnostic Imaging Report ---
EXAMINATION: CHEST 2 VIEWS INDICATION: ^PRE-MAC ASSESSMENT FOR MRI IN AM ^[id number] ^[id number] COMPARISON: Chest x-ray 03/16/2019 None FINDINGS: TUBES and LINES: None. LUNGS: Hyperexpanded lungs. Lungs are clear. Prominent central pulmonary vasculature. PLEURA: No pleural effusion or pneumothorax. HEART AND MEDIASTINUM: Cardiac size is mildly enlarged. BONES AND SOFT TISSUES: No acute osseous lesion. Soft tissues are unremarkable. Degenerative changes. UPPER ABDOMEN: No free air under the diaphragm. IMPRESSION: Mild cardiomegaly and pulmonary vascular congestion. Hyperexpanded lungs can be seen with obstructive pulmonary disease. Signed by: Dean Knutson DO on 07/13/2020 10:20 PM
[2020-07-14] VITALS (7 sets, daily range): BP systolic 115–142; BP diastolic 63–84
[2020-07-14] MEDS ORDERED: HYDROCODONE/APAP 10MG-325MG TAB PO STA (00:35)
[2020-07-14] MEDS: SODIUM CHLORIDE 0.9% 1000ML 1,000 ML IV SCH (00:58)
--- NOTE | 2020-07-14 04:00 | NUR ---
Purewick used on patient per patient request and to help prevent patient from hurting during urination.
[2020-07-14 05:37] LABS: BASOPHILS # (AUTO) 0.1 (0.0-0.1); BASOPHILS % 0.9 % (0.0-1.0); EOSINOPHILS # (AUTO) 0.1 (0.0-0.4); EOSINOPHILS % 1.7 % (0.0-6.0); HEMATOCRIT 36.3 % (34.2-44.1); HEMOGLOBIN 11.7 g/dL (12.0-16.0); LYMPHOCYTES # (AUTO) 3.4 (1.0-3.2); LYMPHOCYTES % 45.6 % (18.0-39.1); MEAN CORPUSCULAR HEMOGLOBIN 28.3 pg (28-32); MEAN CORPUSCULAR HGB CONC 32.2 g/dL (31-35); MEAN CORPUSCULAR VOLUME 87.9 fL (81-99); MONOCYTES # (AUTO) 0.6 (0.2-0.8); MONOCYTES % 8.2 % (4.4-11.3); NEUTROPHILS # (AUTO) 3.2 (2.1-6.9); NEUTROPHILS % 43.1 % (38.7-80.0); PLATELET COUNT 276 x10e3/uL (140-360); RED BLOOD COUNT 4.13 x10e6/uL (3.6-5.1); RED CELL DISTRIBUTION WIDTH 15.2 % (11.7-14.4)
[2020-07-14 05:57] LABS: ALANINE AMINOTRANSFERASE 23 IU/L (0-55); ALBUMIN 3.5 g/dL (3.5-5.0); ALBUMIN/GLOBULIN RATIO 1.3 (0.8-2.0); ALKALINE PHOSPHATASE 60 IU/L (40-150); ANION GAP 11.6 mmol/L (8-16); BLOOD UREA NITROGEN 11 mg/dL (7-26); BUN/CREATININE RATIO 16 (6-25); CALCIUM 7.9 mg/dL (8.4-10.2); CARBON DIOXIDE 26 mmol/L (22-29); CHLORIDE 109 mmol/L (98-107); CREATININE, SERUM 0.69 mg/dL (0.57-1.11); EST GLOMERULAR FILTRATION RATE > 60 ML/MIN (60-); GLUCOSE 102 mg/dL (74-118); POTASSIUM 3.6 mmol/L (3.5-5.1); SODIUM 143 mmol/L (136-145)
[2020-07-14] MEDS ORDERED: LEVOTHYROXINE SODIUM 100 MCG TAB PO SCH (06:00)
[2020-07-14 06:10] LABS: CREATINE KINASE 163 IU/L (29-168)
[2020-07-14] MEDS ORDERED: LEVOTHYROXINE SODIUM 88 MCG TAB PO SCH (06:30)
--- NOTE | 2020-07-14 07:00 | NUR ---
ASSUMED CARE. AAOX3. ACYANOTIC. RESTING IN BED. NO DISTRESS NOTED. CALL LIGHT IN REACH. SIDE RAILS UP X2. BED LOW AND LOCKED.
[2020-07-14] MEDS: FAMOTIDINE 20 MG TAB PO SCH ×2 (07:30→16:28)
[2020-07-14] MEDS ORDERED: LACTATED RINGER'S 1,000 ML ONE (08:45)
[2020-07-14] MEDS: GABAPENTIN 300 MG CAP PO SCH ×2 (09:00→16:28)
[2020-07-14] MEDS ORDERED: KETOROLAC TROMETHAMINE 30 MG/ML VIAL ONE (10:11)
--- NOTE | 2020-07-14 10:42 | NUR ---
PATIENT RESTING IN BED AFTER MRI. AAOX3. ACYANOTIC. NO DISTRESS NOTED. CALL LIGHT IN REACH. SIDE RAILS UP X2. BED LOW AND LOCKED. PUREWICK RE-POSITIONED TO PATIENT. NS INFUSING AT 100 ML/HR VIA LEFT AC IV. NURSE PRACTITIONER AT BEDSIDE.
--- NOTE | 2020-07-14 11:11 | Diagnostic Imaging Report ---
MRI SPINE LUMBAR WO HISTORY: Low back pain COMPARISON: Report from lumbar spine MRI dated 03/04/2017 TECHNIQUE: Sagittal T1, sagittal T2, sagittal STIR, axial T2, coronal T2, and axial proton density weighted images of the lumbar spine were obtained without contrast. DISCUSSION: Number of non-rib bearing lumbar vertebral bodies: 5. Alignment: Normal lordosis. Mild thoracolumbar dextroscoliosis is centered at approximately L1-L2. Mild compensatory lumbar levoscoliosis is centered at approximately L4-L5. Vertebrae: No fractures, or neoplasm. Conus medullaris: Normal, ends at L1. Cauda equina: No masses or arachnoiditis. Posterior paraspinal muscles: There is mild paraspinal muscle atrophy and edema in the lower lumbar spine. Mild right gluteal muscle edema is also partially imaged. Soft tissues: Multiple partially imaged indeterminate T2 hyperintense nodular lesions are seen throughout the liver. Small nodular T2 hyperintense lesion in the lower left kidney may be a cyst. There is multilevel advanced disc degeneration in the lower thoracic and upper lumbar spine. Nonspecific multilevel inflammatory endplate changes from T12 to L4 are present. T12-L1: Disc bulge without significant canal or foraminal stenosis. L1-L2: Mild canal stenosis due to disc bulge and ligamentum flavum thickening. Mild bilateral foraminal stenoses due to disc bulge and facet arthrosis. L2-L3: Moderate canal stenosis due to disc bulge and ligamentum flavum thickening. Both lateral recesses are effaced, left greater than right. Mild right and moderate left foraminal stenoses due to disc bulge and facet arthrosis. L3-L4: Moderate to severe canal stenosis due to disc bulge and ligamentum flavum thickening. The lateral recesses are effaced, right greater than left. Severe right and mild left foraminal stenoses due to disc bulge and facet arthrosis. Small bilateral facet effusions are present. L4-L5: Laminectomy changes without significant central canal stenosis. Mild bilateral due to disc bulge and facet arthrosis. Mild to moderate right and mild left foraminal stenoses due to disc bulge and facet arthrosis. Small bilateral facet effusions are present. L5-S1: Patent canal and foramina. Small bilateral facet effusions are present. IMPRESSION: 1. Multilevel advanced disc degeneration at the thoracolumbar junction with nonspecific multilevel inflammatory endplate changes. Associated mild thoracolumbar dextroscoliosis and compensatory lumbar levoscoliosis. 2. Laminectomy changes at L4-L5 without significant central canal stenosis. 3. Multilevel degenerative canal stenoses - moderate to severe at L3-L4 and moderate at L2-L3. 4. Multilevel bilateral degenerative foraminal stenoses - severe on the right at L3-L4. 5. Partially imaged indeterminate T2 hyperintense nodular lesions throughout the liver. Further evaluation with liver protocol CT or MRI is recommended. Signed by: Dr. Jasbir Dinero M.D. on 07/14/2020 11:08 AM
[2020-07-14 13:27] LABS: CREATINE KINASE 151 IU/L (29-168)
[2020-07-14] MEDS ORDERED: MIDAZOLAM HCL 2 MG/2 ML VIAL ONE (15:24)
[2020-07-14] MEDS ORDERED: FENTANYL CITRATE/PF 100MCG/2 ML INJ ONE (15:24)
[2020-07-14] MEDS ORDERED: PROPOFOL IV EMULSION 10 MG/ML 20 ML VIAL ONE (18:15)
[2020-07-14] MEDS: DEXAMETHASONE SOD PHOS INJ 4 MG/ML VIAL IV SCH (18:55)
[2020-07-14] MEDS ORDERED: DEXTROSE 50% SYRINGE 50 ML IV PRN (19:30)
[2020-07-14] MEDS ORDERED: INSULIN REGULAR, HUMAN 100 UNIT/1 ML 3ML VIAL SQ SCH (21:00)
[2020-07-15 00:50] VITALS: BP 116/74
[2020-07-15] MEDS: DEXAMETHASONE SOD PHOS INJ 4 MG/ML VIAL IV SCH ×4 (01:23→17:54)
[2020-07-15 04:00] VITALS: BP 115/74
[2020-07-15 05:55] LABS: BASOPHILS % 0.2 % (0.0-1.0); LYMPHOCYTES # (AUTO) 1.7 (1.0-3.2); LYMPHOCYTES % 18.3 % (18.0-39.1); MEAN CORPUSCULAR HEMOGLOBIN 28.5 pg (28-32); MEAN CORPUSCULAR HGB CONC 32.5 g/dL (31-35); MEAN CORPUSCULAR VOLUME 87.7 fL (81-99); MONOCYTES # (AUTO) 0.3 (0.2-0.8); MONOCYTES % 2.9 % (4.4-11.3); NEUTROPHILS # (AUTO) 7.3 (2.1-6.9); NEUTROPHILS % 78.2 % (38.7-80.0); PLATELET COUNT 292 x10e3/uL (140-360); RED BLOOD COUNT 4.56 x10e6/uL (3.6-5.1)
[2020-07-15] MEDS ORDERED: LEVOTHYROXINE SODIUM 100 MCG TAB PO SCH (06:00)
[2020-07-15 06:26] LABS: ALANINE AMINOTRANSFERASE 24 IU/L (0-55); ALBUMIN 3.6 g/dL (3.5-5.0); ALBUMIN/GLOBULIN RATIO 1.2 (0.8-2.0); ALKALINE PHOSPHATASE 65 IU/L (40-150); ANION GAP 13.7 mmol/L (8-16); BLOOD UREA NITROGEN 11 mg/dL (7-26); BUN/CREATININE RATIO 17 (6-25); CALCIUM 8.4 mg/dL (8.4-10.2); CARBON DIOXIDE 26 mmol/L (22-29); CHLORIDE 105 mmol/L (98-107); CREATININE, SERUM 0.65 mg/dL (0.57-1.11); EST GLOMERULAR FILTRATION RATE > 60 ML/MIN (60-); GLUCOSE 103 mg/dL (74-118); POTASSIUM 3.7 mmol/L (3.5-5.1); SODIUM 141 mmol/L (136-145)
[2020-07-15] MEDS ORDERED: DEXTROSE 50% SYRINGE 50 ML IV PRN ×2 (07:15)
[2020-07-15] MEDS: HYDROCODONE/APAP 10MG-325MG TAB PO PRN ×2 (07:55→13:15)
[2020-07-15] MEDS: GABAPENTIN 300 MG CAP PO SCH ×2 (07:55→16:05)
[2020-07-15] MEDS: FAMOTIDINE 20 MG TAB PO SCH ×2 (07:55→16:05)
[2020-07-15 08:19] VITALS: BP 110/66
[2020-07-15 08:58] VITALS: BP 110/66
[2020-07-15] MEDS ORDERED: LIDOCAINE 4% PATCH TP SCH (09:30)
[2020-07-15] MEDS ORDERED: FENTANYL 25 MCG/HR PATCH TOP SCH (09:30)
[2020-07-15] MEDS ORDERED: SYNTHROID100 MCG PO (10:54)
[2020-07-15] MEDS ORDERED: Lidocaine Patch TP (10:54)
[2020-07-15] MEDS: KETOROLAC TROMETHAMINE 30 MG/ML VIAL IV PRN (11:26)
[2020-07-15 12:00] VITALS: BP 123/81
[2020-07-15] MEDS ORDERED: INSULIN REGULAR, HUMAN 100 UNIT/1 ML 3ML VIAL SQ SCH ×2 (12:00)
--- NOTE | 2020-07-15 15:51 | NUR ---
Received order for rolling walker, per PT's recommendation. Rolling walker provided to pt. Pt also informed CM that she previously went to [facility] and has contacted them. States they told her they would put her back on the schedule after her surgery. IMM letter delivered and discussed with pt. She verbalized understanding. Copy given to pt. Signed copy placed in chart. Signed form for rolling walker turned into PACU.
[2020-07-15 16:48] VITALS: BP 134/95
[2020-07-15] MEDS ORDERED: HYDROCODON-ACE1 EAC9 PO (17:28)
--- NOTE | 2020-07-15 18:09 | NUR ---
Left AC IV discontinued. No signs of infiltration noted. 2x2 gauze and coban placed. Taken via wheelchair to personal car by PCT. Accompanied by son. AAOX4 to time, person, place, situation. Respirations even and unlabored. Discharge instructions, rx, and all personal belongings taken with patient.
--- NOTE | 2020-07-18 03:12 | Discharge Summary ---
ADMISSION DIAGNOSES: Back pain status post fall, hypothyroidism, and cerebral palsy. DISCHARGE DIAGNOSES: Back pain status post fall, hypothyroidism, and cerebral palsy plus lumbar radiculitis. HISTORY: Hypothyroidism, cerebral palsy, and osteoporosis. SURGICAL HISTORY: Bilateral foot hallux surgery, left leg surgery, left hand surgery x2, back surgery on L5, right retinal reattachment, right foot bunionectomy, eye surgery, left wrist surgery, bilateral Lasix surgery, and right cataract surgery. FAMILY HISTORY: The patient's brother had diabetes and the patient's dad has cancer. SOCIAL HISTORY: Noncontributory. HOSPITAL COURSE: A 64-year-old female admits with complaints of excruciating back pain for one week. She fell to her left thigh two weeks ago, but denies pain, status post fall. She had a steroid shot by Dr. Connolly three weeks ago in her knee and gets physical therapy on Saturday and Saturday, she began having excruciating right lower back pain that radiated to her anterior thigh and down her leg to her foot. The foot pain is described as tingling and numbness. Symptoms worsened with movement. On admission, MRI of the lumbar spine showed multilevel advanced disk degeneration and thoracolumbar junction with nonspecific multilevel inflammatory endplate changes. Laminectomy at L4-L5, multilevel degenerative canal stenoses moderate to severe at L3-L4 and moderate at L2-L3, and bilateral foraminal stenosis severe on the right at L3-L4. Neurosurgery and Pain Management were consulted. The patient was given lidocaine patches, steroids and fentanyl patches. The pain improved and physical therapy said the patient is safe to discharge home with a walker. A walker was arranged prior to discharge and CV surgery has cleared the patient. She will discharge home and return next week for surgery per Neurosurgery recommendation. The patient understands instructions and agrees to plan. She has very good help at home. Dictated by Shawnee Bean NP MD MANSOOR Jang/MODL /[id number]
== END 2020-07-15 18:09 | disposition home or self-care (01) | DRG 552 ==
LOC: ER 14:26 → ERHOLD 15:57 → MED/SURG 18:16
PROVIDERS: ADMIT Internal Medicine; ATTEND Internal Medicine
DX: M51.16 Intervertebral disc disorders with radiculopathy, lumbar region (principal); Z88.0 Allergy status to penicillin; E03.9 Hypothyroidism, unspecified; M81.0 Age-related osteoporosis without current pathological fracture; Z83.3 Family history of diabetes mellitus; Z80.9 Family history of malignant neoplasm, unspecified; G80.9 Cerebral palsy, unspecified; Z91.81 History of falling; Z11.59 Encounter for screening for other viral diseases
CPT/HCPCS: 36415; 71046; 72148; 80053; 82550; 82553; 82948; 84443; 84484; 85025; 85610; 85730; 87040; 93005; 99284; J1100; J1885; J2250; J2270; J2405; J3010; J7030; J7121

== ENCOUNTER 2020-07-20 14:31 | Inpatient (IN) | payer MEDICARE, OTHER ==
[~2020-07-20] VITALS: Ht 162.6 cm; Wt 55.3 kg
[~2020-07-20 14:31] MED LIST changes: +HYDROCODON-ACE1 EAC9 PO; +Lidocaine Patch TP; +SYNTHROID100 MCG PO
[2020-07-20] MEDS ORDERED: ONDANSETRON HCL INJ 2MG/ML 2ML 2 MG/ML VIAL IV PRN (17:00)
[2020-07-20] MEDS: SODIUM CHLORIDE 0.9% 1000ML 1,000 ML IV SCH (17:00)
--- NOTE | 2020-07-20 17:36 | Emergency Department Note ---
History of Present Illnes History of Present Illness Chief Complaint: Back Pain History of Present Illness This is a 64 year old female PATIENT IN FROM HOME WITH COMPLAINTS OF CHRONIC BACK PAIN; STATES SHE WAS SENT FROM DR HALL'S OFFICE FOR ADMISSION FOR BACK SURGERY TOMORROW. PATIENT STATES THAT SHE WAS TOLD SHE COULDN'T TAKE HER PAIN MEDICATION IN THE MORNING OR SHE COULD NOT GET HER SURGERY, SO SHE SENT HER TO THE ER FOR ADMISSION. PATIENT ALERT AND ORIENTED, RESP EVEN AND NONLABORED, APPEARS IN NO DISTRESS, RATES PAIN 2/10 AT THIS TIME. Historian: Patient, Family Member Arrival Mode: Car Manager Ethics Required: No Onset (how long ago): week(s) Location: lbp Quality: pain Radiation: Reports extremity Severity: severe Onset quality: gradual Timing of current episode: constant Chronicity: chronic Context: Denies recent illness Relieving factors: none Exacerbating factors: none Associated symptoms: Reports denies other symptoms Past Medical/Family History Physician Review I have reviewed the patient's past medical and family history. Any updates have been documented here. Past Medical History Recent Fever: No Clinical Suspicion of Infectio: No New/Unexplained Change in Ment: No Past Medical History: Hypothyroidism, Chronic Back Pain Other Medical History: Cerebral palsy, Past Surgical History: Back Surgery Other Surgery: Foot surgery, cataract surgery (both eyes), eye surgery (both eyes), Social History Smoking Cessation: Never Smoker Counseling Performed: No Alcohol Use: None Any Illegal Drug Use: No TB Exposure/Symptoms: No Physically hurt or threatened: No Family History Family history of heart diseas: No Other Any Pre-Existing Lines (PICC,: No Review of Systems Review of Systems Constitutional: Reports no symptoms EENTM: Reports no symptoms Cardiovascular: Reports no symptoms Respiratory: Reports no symptoms Gastrointestinal: Reports no symptoms Genitourinary: Reports no symptoms Musculoskeletal: Reports as per HPI Integumentary: Reports no symptoms Neurological: Reports no symptoms Psychological: Reports no symptoms Endocrine: Reports no symptoms Hematological/Lymphatic: Reports no symptoms Physical Exam Related Data Allergies: Coded Allergies: Penicillins (Verified Allergy, Mild, FEELS LIKE "ANTS CRAWLING ON SKIN", 07/20/20) Triage Vital Signs Vital Signs Date Time Temp Pulse Resp B/P (MAP) Pulse Ox O2 Delivery O2 Flow Rate FiO2 07/20/20 15:00 98.3 67 20 118/88 100 Room Air Vital signs reviewed: Yes Physical Exam CONSTITUTIONAL Constitutional: Present well-developed, Present well-nourished HENT HENT: Present normocephalic, Present atraumatic, Present oropharynx clear/m oist, Present nose normal HENT L/R: Present left ext ear normal, Present right ext ear normal EYES Eyes: Reports PERRL, Reports conjunctivae normal NECK Neck: Present ROM normal PULMONARY Pulmonary: Present effort normal, Present breath sounds normal CARDIOVASCULAR Cardiovascular: Present regular rhythm, Present heart sounds normal, Present capillary refill normal, Present normal rate GASTROINTESTINAL Abdominal: Present soft, Present nontender, Present bowel sounds normal GENITOURINARY Genitourinary: Present exam deferred SKIN Skin: Present warm, Present dry MUSCULOSKELETAL Musculoskeletal: Present ROM normal NEUROLOGICAL Neurological: Present alert, Present oriented x 3, Present DTRs normal, Present no gross motor or sensory deficits PSYCHOLOGICAL Psychological: Present mood/affect normal, Present judgement normal Assessment & Plan Medical Decision Making MDM admit per dr hall to dr joy for pain control Reassessment Reassessment spoke w/ dr joy and dr hall Assessment & Plan Final Impression: (1) Herniated disc (2) Intractable low back pain Depart Disposition: ADMITTED Last Vital Signs Date Time Temp Pulse Resp B/P (MAP) Pulse Ox O2 Delivery O2 Flow Rate FiO2 07/20/20 15:00 98.3 67 20 118/88 100 Room Air Home Meds Active Scripts [Lidocaine Patch] 1 EA PATCH No Conflict Check, 1 EA TP DAILY, #10 on for 12 hours, off for 12 hours Prov:PAMGISSELLE M [employer] 07/15/20 Levothyroxine Sodium (SYNTHROID) 100 Mcg Tab, 100 MCG PO DAILY@06 for 30 Days, TAB 2 Refills recheck TSH in 3 months Prov:GISSELLE OROZCO Jodi [employer] 07/15/20 Reported Medications Hydrocodone Bit/Acetaminophen (HYDROCODON-ACETAMINOPHN 10-325) 1 Each Tablet, 1 TAB PO Q6H PRN for MODERATE PAIN (4-6) 07/15/20 [Nature Code Vit] No Conflict Check, 1 TAB PO DAILY 03/16/19 [Theralife] No Conflict Check, 2 TAB PO BID 03/16/19 Mupirocin (MUPIROCIN) 22 Gm Oint...g., 22 GM TOP DAILY for 30 Days, EACH to apply on both nares daily 03/16/19 [Deyvi Red] No Conflict Check, 1 TAB PO BID 03/16/19 Beta Carotene (PRESERVISION TABLET) 1 Each Tab, 2 TAB PO DAILY 03/16/19 Levothyroxine Sodium (SYNTHROID) 88 Mcg Tablet, 88 MCG PO 0630, #30 TAB 03/16/19 Discontinued Reported Medications [Arenorc Pachuta] No Conflict Check, OP DAILY 03/16/19 Cetirizine Hcl/Pseudoephedrine (ZYRTEC-D TABLET) 1 Each Tab.er.12h, 2 TAB PO DAILY 03/16/19 LESLYE MARCELINO MD Jul 20, 2020 17:36
[2020-07-20] MEDS ORDERED: ACETAMINOPHEN 325 MG TAB PO PRN (19:00)
[2020-07-20] MEDS ORDERED: HYDRALAZINE HCL 20 MG/ML VIAL IV PRN (19:00)
[2020-07-20] MEDS ORDERED: POLYETHYLENE GLYCOL 3350 17 GM PACK PO PRN (19:00)
[2020-07-20 20:30] VITALS: BP 140/87
--- NOTE | 2020-07-20 20:30 | NUR ---
INITIAL ASSESSMENT COMPLETE, IV INFUSION STARTED, CALL LIGHT IN REACH, PT STATES SHE IS TO HAVE SURGERY TOMORROW, CALL PLACED TO DR ELMORE FOR CLARIFICATION, PT IS NOT ON THE SURGERY SCHEDULE, ORIENTED TO ROOM, VS WNL, WILL CONTINUE TO MONITOR PT
[2020-07-20] MEDS ORDERED: TEMAZEPAM 7.5 MG CAP PO PRN (21:00)
[2020-07-20] MEDS: MORPHINE SULFATE 2 MG/ML SYR 1ML IV PRN (22:35)
[2020-07-21] VITALS (9 sets, daily range): BP systolic 96–134; BP diastolic 69–80
[2020-07-21] MEDS: MORPHINE SULFATE 2 MG/ML SYR 1ML IV PRN (05:00)
[2020-07-21 05:15] LABS: BASOPHILS # (AUTO) 0.1 (0.0-0.1); BASOPHILS % 0.7 % (0.0-1.0); EOSINOPHILS # (AUTO) 0.2 (0.0-0.4); EOSINOPHILS % 2.5 % (0.0-6.0); HEMATOCRIT 35.2 % (34.2-44.1); HEMOGLOBIN 11.6 g/dL (12.0-16.0); LYMPHOCYTES # (AUTO) 3.3 (1.0-3.2); LYMPHOCYTES % 36.8 % (18.0-39.1); MEAN CORPUSCULAR HEMOGLOBIN 28.6 pg (28-32); MEAN CORPUSCULAR VOLUME 86.7 fL (81-99); MONOCYTES # (AUTO) 0.9 (0.2-0.8); MONOCYTES % 10.4 % (4.4-11.3); NEUTROPHILS # (AUTO) 4.4 (2.1-6.9); PLATELET COUNT 304 x10e3/uL (140-360); RED BLOOD COUNT 4.06 x10e6/uL (3.6-5.1); RED CELL DISTRIBUTION WIDTH 15.6 % (11.7-14.4)
[2020-07-21 05:43] LABS: ALANINE AMINOTRANSFERASE 20 IU/L (0-55); ALBUMIN 3.5 g/dL (3.5-5.0); ALBUMIN/GLOBULIN RATIO 1.3 (0.8-2.0); ALKALINE PHOSPHATASE 49 IU/L (40-150); ANION GAP 12.6 mmol/L (8-16); BLOOD UREA NITROGEN 13 mg/dL (7-26); BUN/CREATININE RATIO 23 (6-25); CALCIUM 8.3 mg/dL (8.4-10.2); CARBON DIOXIDE 25 mmol/L (22-29); CHLORIDE 107 mmol/L (98-107); CHOL/HDL RATIO 2.2 (3.0-3.6); CHOLESTEROL 179 MD/DL (0-199); CREATININE, SERUM 0.57 mg/dL (0.57-1.11); EST GLOMERULAR FILTRATION RATE > 60 ML/MIN (60-); GLUCOSE 109 mg/dL (74-118); HDL CHOLESTEROL 83 MG/DL (40-60); LDL CHOLESTEROL 83 MG/DL (60-130); MAGNESIUM 2.3 MG/DL (1.3-2.1); PHOSPHORUS 3.3 MG/DL (2.3-4.7); POTASSIUM 3.6 mmol/L (3.5-5.1); SODIUM 141 mmol/L (136-145); TRIGLYCERIDES 64 MG/DL (0-149)
--- NOTE | 2020-07-21 05:55 | NUR ---
PT IS AWAKE, VS WNL, UP TO BSC WITH ASSIST AND THEN BACK TO BED, SCD'S ON PT, PT IS NPO FOR POSSIBLE PROCEDURE TODAY, WILL CONTINUE TO MONITOR PT CONDITIONS
[2020-07-21 06:03] LABS: THYROID STIMULATING HORMONE 8.081 uIU/mL (0.350-4.940)
--- NOTE | 2020-07-21 08:00 | NUR ---
ASSUMED CARE. AAOX3. PATIENT RESTING IN BED WITH HOB ELEVATED TO 45 DEGREE ANGLE. ACYANOTIC. NO DISTRESS NOTED. CALL LIGHT IN REACH. SIDE RAILS UP X2. BED LOW AND LOCKED.
[2020-07-21] MEDS: SODIUM CHLORIDE 0.9% 1000ML 1,000 ML IV SCH ×3 (09:00→16:38)
[2020-07-21] MEDS: DOCUSATE SODIUM 100 MG CAP PO SCH ×2 (09:00→17:21)
[2020-07-21] MEDS: FAMOTIDINE 20 MG/2 ML VIAL IV SCH ×2 (09:01→17:21)
[2020-07-21] MEDS ORDERED: MORPHINE SULFATE INJ 4 MG/ML INJ 1ML IV PRN (11:45)
--- NOTE | 2020-07-21 12:00 | NUR ---
PATIENT TRANSFERRED TO OR FOR PENDING PROCEDURE WITH DR. LINARES.
[2020-07-21] MEDS ORDERED: LIDOCAINE 1% W/EPINEPHRINE 20 ML VIAL ONE (12:04)
[2020-07-21] MEDS ORDERED: VANCOMYCIN HCL 1 GM VIAL ONE ×2 (12:04→12:28)
[2020-07-21] MEDS ORDERED: THROMBIN FOR SOLN 5,000 UNIT VIAL ONE (12:04)
[2020-07-21] MEDS ORDERED: DEXAMETHASONE SOD PHOS INJ 4 MG/ML VIAL ONE (12:17)
[2020-07-21] MEDS ORDERED: NEOSTIGMINE 1 MG/ML 10ML VIAL ONE (12:17)
[2020-07-21] MEDS ORDERED: LIDOCAINE HCL 2% LOCAL INJ 5 ML SDV VIAL INJ ONE (12:17)
[2020-07-21] MEDS ORDERED: ATROPINE SULFATE 1 MG/ML VIAL ONE (12:17)
[2020-07-21] MEDS ORDERED: SEVOFLURANE INHAL SOLN 250 ML PEN BTL ONE (12:17)
[2020-07-21] MEDS ORDERED: ROCURONIUM BROMIDE 10 MG/ML 5ML VIAL IV ONE (12:17)
[2020-07-21] MEDS ORDERED: ONDANSETRON HCL INJ 2MG/ML 2ML 2 MG/ML VIAL ONE (12:17)
[2020-07-21] MEDS ORDERED: KETOROLAC TROMETHAMINE 30 MG/ML VIAL ONE (12:17)
[2020-07-21] MEDS ORDERED: PROPOFOL IV EMULSION 10 MG/ML 20 ML VIAL ONE (12:17)
[2020-07-21] MEDS ORDERED: SODIUM CHLORIDE 0.9% 250ML 250 ML ONE (12:29)
[2020-07-21] MEDS ORDERED: FENTANYL CITRATE/PF 100MCG/2 ML INJ ONE (13:10)
[2020-07-21] MEDS ORDERED: MIDAZOLAM HCL 2 MG/2 ML VIAL ONE (13:10)
--- NOTE | 2020-07-21 13:34 | History and Physical ---
PRIMARY CARE PHYSICIAN: Dr. Goss. CHIEF COMPLAINT: Low back pain. CONSULTING PHYSICIAN: Dr. Ramirez with Neurosurgery. HISTORY OF PRESENT ILLNESS: The patient is a 64-year-old female who was admitted via the emergency department, who states that she had an appoint with Dr. Ramirez last Saturday, but was unable to go because she could not get to the fourth floor of his office building and was unable to obtain a wheelchair from the office staff or elsewhere. She was told by them that if she took her pain medications prior to her surgery which is scheduled for today 07/21/2020, then it would cancel her surgery. She was still in considerable pain thus she went to the ER last night by direction of Dr. Ramirez's office to obtain some relief and go ahead and get admitted for the impending surgery. She is currently seen in room 100 in mild distress with complaints of low back pain. Trying to participate with physical therapy. She states her back pain after attempting to work with physical therapy and receiving morphine is about 2 or 3 out of on a scale of 0-10. PAST MEDICAL HISTORY: Hypothyroidism, chronic back pain, cerebral palsy, osteoporosis, hypothyroidism. PAST SURGICAL HISTORY: Bilateral foot hallux surgery, left leg surgery, left hand surgery twice, back surgery on L5, right retinal reattachment, right foot bunionectomy, eye surgery, left wrist surgery, bilateral Lasix surgery and right cataract surgery. FAMILY HISTORY: The patient's brother had diabetes and the patient's father had cancer. SOCIAL HISTORY: The patient lives alone. 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 She denies any previous use of tobacco, alcohol, or illicit drugs. She states she does not want to go to rehab after the surgery due to COVID pandemic. ALLERGIES: MILD ALLERGY TO PENICILLIN. HOME MEDICATIONS: Beta-carotene two tabs daily, [place] 10-325 one tablet every 6 hours p.r.n. for moderate pain, levothyroxine 88 mcg daily versus 100 mcg daily (both were listed) mupirocin 22 g topically daily, lidocaine patch topically daily, MegaRed b.i.d., nature code vitamin daily, two tabs b.i.d. REVIEW OF SYSTEMS: A 14-point review of systems was completed. The patient denies any current complaints related to the constitutional, eyes, ears, nose, throat, respiratory, genitourinary, psychiatric, integumentary, cardiovascular, gastrointestinal, neurologic, endocrine, immunological systems. No chills or fever. Last bowel movement 07/19/2020, which was small. Musculoskeletal as per history of present illness. Hematologic, she has a bruise on the right hip with that she got attempting to get to the restroom and bruised herself on the toilet. PHYSICAL EXAMINATION: VITAL SIGNS: Temperature 97.8, pulse 67, blood pressure 124/73, respirations 18, oxygen saturation 96% on room air. Height 5 feet 4 inches. Weight 122 pounds. BMI 20.93. GENERAL: No acute distress, but is experiencing some back pain. LUNGS: Clear to auscultation. Respiratory pattern even, nonlabored. No supplemental oxygen. HEENT: EOMI. Neck is supple. No lymphadenopathy, thyromegaly, or JVD. CARDIOVASCULAR: Regular rate and rhythm. No murmur. Normal saline infusing at 125 mL an hour through a peripheral IV. ABDOMEN: Bowel sounds positive. Soft, nontender. EXTREMITIES: No pitting edema. No clubbing, cyanosis, or signs of DVT. NEUROLOGIC: GCS 15. Nonfocal. LABORATORY DATA: WBCs 9.04, hemoglobin 11.6, hematocrit 35.2, platelets 304, neutrophils 49%. Sodium 141, potassium 3.6, chloride 107, CO2 of 25, anion gap 12.6, BUN 13, creatinine 0.57, estimated GFR greater than 60, glucose 109. Hemoglobin A1c 5.8%. Calcium 8.3, phosphorus 3.3, magnesium 2.3, total bilirubin 0.6, AST 20, ALT 20, alkaline phosphatase 49, total protein 6.1, albumin 3.5, globulin 2.6. Triglyceride 64, cholesterol 179, LDL 83, HDL 83, TSH 8.081. Arreola virus collected 07/20/2020 remains pending. IMAGING/OTHER: No new imaging. The patient was previously discharged from this facility on 07/15/2020 and had an MRI of the lumbar spine showing multilevel advanced disk degeneration at the thoracolumbar junction with nonspecific multilevel inflammatory endplate changes. Laminectomy at L4-L5. Multilevel degenerative canal stenosis, moderate to severe at L3-L4 and moderate at L2-L3 and bilateral foraminal stenosis, severe on the right at L3-L4. ASSESSMENT AND PLAN: 1. Multilevel thoracolumbar advanced disk degeneration with moderate to severe canal stenosis at L3-L4; planned surgery today. Continue morphine for pain. The community midwife spoke with Saige at Dr. Ramirez's office, who states that Dr. Ramirez is aware of the patient has been admitted. Appreciate recommendations from Neurosurgery. 2. Status post fall the left thigh over two weeks ago; acute on chronic intractable low back pain. Fall precautions. Continue morphine for pain control. Physical therapy evaluation and treatment. Neurosurgery following. 3. Cerebral palsy. Supportive care. 4. Hypothyroidism. TSH elevated at 8.081 (8.238). Per home medications it looks like the patient had been on 88 mcg of levothyroxine daily, which was likely increased to 100 mcg. We will go ahead and use 100 mcg daily. She will need to follow up TSH within three months. 5. Osteoporosis. PT eval and treat, pain control. 6. Prophylaxis. Pepcid and SCDs. Inpatient billing code [id number]. Time spent 60 minutes. Dictated by Michael Smith NP MD LACY Jang/MODL /[id number]
[2020-07-21] MEDS ORDERED: ACETAMINOPHEN 325 MG TAB PO PRN (14:00)
[2020-07-21] MEDS ORDERED: DEXTROSE 50% SYRINGE 50 ML IV PRN (14:00)
[2020-07-21] MEDS ORDERED: MAGNESIUM/ALUMINUM/SIMETHICONE 30 ML UDC PO PRN (14:00)
[2020-07-21] MEDS ORDERED: CARISOPRODOL 350 MG TAB PO PRN (14:00)
[2020-07-21] MEDS ORDERED: ONDANSETRON HCL INJ 2MG/ML 2ML 2 MG/ML VIAL IV PRN (14:00)
[2020-07-21] MEDS ORDERED: CEPACOL SORE THROAT LOZENGES PO PRN (14:00)
[2020-07-21] MEDS ORDERED: HYDROMORPHONE 2MG/ML 2 MG/ML ML IV PRN ×2 (14:00)
[2020-07-21] MEDS ORDERED: PROMETHAZINE HCL (IM) 25 MG/ML VIAL IM PRN (14:00)
[2020-07-21] MEDS ORDERED: OXYCODONE/ACETAMINOPHEN 5-325 1 EACH TABLET PO PRN (14:00)
[2020-07-21] MEDS ORDERED: HYDROMORPHONE 1MG/1ML INJ IV PRN (14:15)
[2020-07-21] MEDS ORDERED: HYDROMORPHONE 2MG/ML 2 MG/ML ML ONE (14:20)
--- NOTE | 2020-07-21 15:29 | NUR ---
AAOX3. ACYANOTIC. RESTING IN BED. PATIENT ARRIVED BACK TO UNIT AT APPROXIMATELY 1500. NO DISTRESS NOTED. CALL LIGHT IN REACH. SIDE RAILS UP X2. BED LOW AND LOCKED.
[2020-07-21] MEDS: LACTATED RINGER'S 1,000 ML IV SCH ×2 (15:57→22:20)
[2020-07-21] MEDS: MEGA RED PO SCH (17:00)
[2020-07-21] MEDS: [UNRECOGNIZED DRUG - OTHER] PO SCH (17:00)
--- NOTE | 2020-07-21 17:12 | Diagnostic Imaging Report ---
EXAMINATION: Lumbar spine radiographs - 1 views CLINICAL HISTORY: Herniated disc COMPARISON: Lumbar spine MRI 07/14/2020 DISCUSSION: Limited intraoperative single cross table radiograph of the lumbar spine. Linear radiopaque surgical markers overlie the L3 vertebra and L3-L4 intervertebral disc space. No acute osseous abnormalities given exam limitations. Advanced multilevel degenerative disc changes and facet arthropathy. IMPRESSION: 1. Limited intraoperative cross table radiograph with linear radiopaque surgical markers overlying the L3 vertebra and L3-L4 intervertebral disc space. 2. Advanced multilevel degenerative disc changes. Signed by: Dr. Delta Mcguire M.D. on 07/21/2020 5:08 PM
--- NOTE | 2020-07-21 17:13 | Diagnostic Imaging Report ---
EXAMINATION: Lumbar spine radiographs - 1 views CLINICAL HISTORY: Herniated disc COMPARISON: Lumbar spine MRI 07/14/2020, intraoperative lumbar spine radiograph performed earlier on the same day DISCUSSION: Limited intraoperative single cross table radiograph of the lumbar spine. Linear metallic surgical marker overlies the posterior spinal elements at L3. No acute osseous abnormalities given exam limitations. Advanced multilevel degenerative disc changes and facet arthropathy. IMPRESSION: 1. Limited intraoperative cross table radiograph with linear metallic surgical marker overlying the posterior spinal elements at L3. 2. Advanced multilevel degenerative disc changes. Signed by: Dr. Delta Mcguire M.D. on 07/21/2020 5:10 PM
--- NOTE | 2020-07-21 17:14 | Diagnostic Imaging Report ---
EXAMINATION: Lumbar spine radiographs - 1 views CLINICAL HISTORY: Herniated disc COMPARISON: Lumbar spine MRI 07/14/2020, intraoperative lumbar spine radiograph performed earlier on the same day DISCUSSION: Limited intraoperative single cross table radiograph of the lumbar spine. Linear metallic surgical markers overlying the posterior spinal elements at L3-L4. No acute osseous abnormalities given exam limitations. Advanced multilevel degenerative disc changes and facet arthropathy. IMPRESSION: 1. Limited intraoperative cross table radiograph with linear metallic surgical markers overlying the posterior spinal elements at L3-L4. 2. Advanced multilevel degenerative disc changes. Signed by: Dr. Delta Mcguire M.D. on 07/21/2020 5:11 PM
[2020-07-21] MEDS: DEXAMETHASONE SOD PHOS INJ 4 MG/ML VIAL IV SCH (17:21)
--- NOTE | 2020-07-21 17:50 | Operative Report ---
DATE OF PROCEDURE: 07/21/2020 SURGEON: Cali Ramirez MD PREOPERATIVE DIAGNOSIS: Right L3-4 disk herniation with lateral extension into the neural foramen, M51.16. POSTOPERATIVE DIAGNOSIS: Right L3-4 disk herniation with lateral extension into the neural foramen, M51.16. PROCEDURES: Right L3-4 laminotomy, partial facetectomy, and microsurgical diskectomy, 14317. ANESTHESIA: General. INDICATIONS: The patient is a 64-year-old woman, who presents with excruciating pain in the right anterior thigh region, unable to ambulate. She is found to have a large right L3-4 disk herniation with superior lateral migration into the right L3 neural foramen. She was taken to the operating room for decompression and diskectomy. PROCEDURE IN DETAIL: After induction of general anesthesia, the patient was placed on the operating table in prone position over a Sonu frame. The lumbar region was prepped and draped in sterile fashion. A preoperative x-ray was obtained. A small midline incision was created. Lumbar fascia was opened in right of midline and a subperiosteal dissection was carried out to expose the right side of the L3 and L4 lamina and medial aspect of the facet joint. Additional x-rays confirmed correct localization. The operating microscope was brought in. A high-speed drill equipped with timothy bur was used to drill the inferior aspect of the lamina of L3 and superior aspect lamina of L4 and the medial half of the L3-4 hypertrophic facet joint. The ligamentum flavum was resected. The dural sac and the traversing L4 and the inferior margin of the exiting L3 nerve root were exposed. The large extruded disk material came into view between the 2 nerve roots, mobilized with a ball probe and resected as most multiple large pieces with a micropituitary rongeur. The portion of the disk that extended into the spinal canal was then resected. Excellent decompression was thus achieved. The L3-4 disk space itself was markedly degenerated and completely closed up, and was not entered during this operation. The wound was copiously irrigated with bacitracin solution. Meticulous hemostasis was secured. A small piece of Gelfoam was left in the neural foramen to maintain hemostasis. Lumbar fascia was closed with 0 Vicryl sutures. Subcutaneous layer was closed with 2-0 Vicryl sutures. The skin was closed with 3-0 Monocryl sutures in subcuticular fashion. Steri-Strips and dressing were applied. The patient was awakened, extubated, and taken to postanesthesia care unit in stable condition. No intraoperative complications were encountered. Estimated blood loss was 10 mL. Cali Ramirez MD PP/ABAD /[id number]
--- NOTE | 2020-07-21 19:00 | NUR ---
RECEIVED BEDSIDE SHIFT REPORT FROM PREVIOUS NURSE. CALL LIGHT WITHIN REACH. PATIENT IN BED. Addendum: 07/21/20 at 2152 by Sheila Morrell RN SON AT THE BEDSIDE
[2020-07-21] MEDS ORDERED: ZOLPIDEM TARTRATE 5 MG TAB PO PRN (21:00)
[2020-07-22] MEDS ORDERED: VANCOMYCIN 1GM/NS 250 ML 250 ML IV SCH
[2020-07-22 03:50] VITALS: BP 103/77
[2020-07-22] MEDS ORDERED: NORCO 7.5-3251 EACH PO (05:09)
[2020-07-22 05:11] LABS: BASOPHILS % 0.2 % (0.0-1.0); EOSINOPHILS % 0.3 % (0.0-6.0); HEMATOCRIT 32.7 % (34.2-44.1); HEMOGLOBIN 10.6 g/dL (12.0-16.0); LYMPHOCYTES # (AUTO) 1.6 (1.0-3.2); LYMPHOCYTES % 15.3 % (18.0-39.1); MEAN CORPUSCULAR HEMOGLOBIN 28.4 pg (28-32); MEAN CORPUSCULAR HGB CONC 32.4 g/dL (31-35); MEAN CORPUSCULAR VOLUME 87.7 fL (81-99); MONOCYTES # (AUTO) 1.1 (0.2-0.8); MONOCYTES % 10.4 % (4.4-11.3); NEUTROPHILS # (AUTO) 7.7 (2.1-6.9); NEUTROPHILS % 73.3 % (38.7-80.0); PLATELET COUNT 281 x10e3/uL (140-360); RED BLOOD COUNT 3.73 x10e6/uL (3.6-5.1); RED CELL DISTRIBUTION WIDTH 15.6 % (11.7-14.4)
[2020-07-22 05:36] LABS: ANION GAP 9.9 mmol/L (8-16); BLOOD UREA NITROGEN 16 mg/dL (7-26); BUN/CREATININE RATIO 25 (6-25); CALCIUM 8.2 mg/dL (8.4-10.2); CARBON DIOXIDE 25 mmol/L (22-29); CHLORIDE 107 mmol/L (98-107); CREATININE, SERUM 0.64 mg/dL (0.57-1.11); EST GLOMERULAR FILTRATION RATE > 60 ML/MIN (60-); GLUCOSE 117 mg/dL (74-118); POTASSIUM 3.9 mmol/L (3.5-5.1); SODIUM 138 mmol/L (136-145)
[2020-07-22] MEDS ORDERED: LEVOTHYROXINE SODIUM 100 MCG TAB PO SCH (06:00)
[2020-07-22] MEDS: LACTATED RINGER'S 1,000 ML IV SCH (06:40)
--- NOTE | 2020-07-22 07:00 | NUR ---
GAVE BEDSIDE SHIFT REPORT TO ONCOMING NURSE. CALL LIGHT WITHIN REACH. PATIENT IN BED. HOURLY ROUNDING PERFORMED.
[2020-07-22 08:40] VITALS: BP 127/82
[2020-07-22 09:00] VITALS: BP 127/82
[2020-07-22] MEDS ORDERED: MUPIROCIN 2% OINT 22 GM TUBE TOP SCH (09:00)
[2020-07-22] MEDS ORDERED: MULTIVITAMINS/MINERALS TAB PO SCH (09:00)
[2020-07-22] MEDS: SODIUM CHLORIDE 0.9% 1000ML 1,000 ML IV SCH ×2 (09:00)
[2020-07-22] MEDS: MEGA RED PO SCH (09:00)
[2020-07-22] MEDS ORDERED: LIDOCAINE 4% PATCH TP SCH (09:00)
[2020-07-22] MEDS ORDERED: NON-FORMULARY MEDICATION ([Lidocaine Patch] 1 EA) TP SCH (09:00)
[2020-07-22] MEDS ORDERED: OCUVITE PRESERVISION TABLET PO SCH (09:00)
[2020-07-22] MEDS ORDERED: [UNRECOGNIZED DRUG - OTHER] PO SCH (09:00)
[2020-07-22] MEDS: [UNRECOGNIZED DRUG - OTHER] PO SCH (09:00)
[2020-07-22] MEDS: DOCUSATE SODIUM 100 MG CAP PO SCH (09:47)
[2020-07-22] MEDS: FAMOTIDINE 20 MG/2 ML VIAL IV SCH (09:47)
[2020-07-22] MEDS: DEXAMETHASONE SOD PHOS INJ 4 MG/ML VIAL IV SCH (09:47)
--- NOTE | 2020-07-22 09:53 | NUR ---
EDUCATED ABOUT IMM, SIGNED, FILED IN CHART, WITH COPY LEFT WITH FAMILY AT BEDSIDE.
--- NOTE | 2020-07-22 09:53 | NUR ---
CALLED FOR LM AT [facility] [id number] [facility] [address] [address]/[phone] FAX [phone]
--- NOTE | 2020-07-22 10:05 | NUR ---
LM CALLED BACK AND STATED FOR PT TO RELAX FOR THE WEEK AND SPEAK WITH DR HERRERA IN FOLLOW UP AND HE WILL DETERMINE AT THAT TIME IF SHE NEEDS TO CONTINUE. NO PHYSICAL THERAPY NEED AT THIS TIME
--- NOTE | 2020-07-22 10:34 | NUR ---
dressing removed from back incision. spoke with dr. donnelly regarding discharge instructions. prescription given to patient, discharge instructions provided. patient dressed herself and waiting for son to arrive to take her home at this time. anders.
--- NOTE | 2020-07-22 11:10 | NUR ---
patient wheeled to son's personal vehicle with all belongings.
--- NOTE | 2020-07-22 18:12 | Discharge Summary ---
ADMISSION DIAGNOSES: Multilevel thoracolumbar advanced disk degeneration with yynmvxso-bz-pzjcpm canal stenosis at L3-L4, status post fall to left thigh 2 weeks ago with dzwxg-gm-vzafmlm back pain, cerebral palsy, hypothyroidism, and osteoporosis. DISCHARGE DIAGNOSES: Multi level thoracolumbar advanced disk degeneration with bznbuyim-ex-xodpbb canal stenosis at L3-L4, status post fall to left thigh 2 weeks ago with eioil-bc-iiddrdj back pain, cerebral palsy, hypothyroidism, and osteoporosis. HISTORY: Hypothyroidism, chronic back pain, cerebral palsy, osteoporosis, and hypothyroidism. SURGICAL HISTORY: Bilateral foot hallux surgery, left leg surgery, left hand surgery x2, back surgery at L5, right retinal reattachment, right foot bunionectomy, eye surgery, left wrist surgery, bilateral LASIK surgery, and right cataract surgery. FAMILY HISTORY: The patient's brother had diabetes and the patient's father had cancer. SOCIAL HISTORY: The patient lives alone and is usually independent. HOSPITAL COURSE: A 64-year-old female, re-admitted on 07/21/2020 for as scheduled procedure with Neurosurgery due to lumbar radiculitis. On admission, Neurosurgery was consulted. The patient had a right L3-L4 laminotomy, partial facetectomy, and microsurgical diskectomy. After the procedure, the patient's pain is much improved. She is walking with a walker. She will discharge home and follow up with outpatient rehab as previously scheduled. Neurosurgery wrote a prescription for pain medicine. She will discharge home and follow up with Dr. Ramirez in one week. The patient understands discharge instructions and agrees to plan. Vital signs are stable. The patient is afebrile. Dictated by Shawnee Bean, JESS MD MANSOOR Jang/MODL /[id number]
== END 2020-07-22 11:05 | disposition home health service (06) | DRG 520 ==
LOC: ER 14:55 → ERHOLD 16:49 → MED/SURG 20:23
PROVIDERS: ADMIT Internal Medicine; ATTEND Internal Medicine
PROC: 00NY0ZZ Release Lumbar Spinal Cord, Open Approach (ICD-10-PCS; 2020-07-21)
PROC: 0RBB0ZZ Excision of Thoracolumbar Vertebral Disc, Open Approach (ICD-10-PCS; 2020-07-21)
PROC: 00NX0ZZ Release Thoracic Spinal Cord, Open Approach (ICD-10-PCS; principal; 2020-07-21 10:30)
DX: M51.05 Intervertebral disc disorders with myelopathy, thoracolumbar region (principal); Z91.81 History of falling; M81.0 Age-related osteoporosis without current pathological fracture; G80.9 Cerebral palsy, unspecified; E03.9 Hypothyroidism, unspecified; M54.10 Radiculopathy, site unspecified
CPT/HCPCS: 36415; 72020; 80048; 80053; 80061; 83036; 83735; 84100; 84443; 85025; 88304; 99284; J0461; J1100; J1170; J1885; J2001; J2250; J2270; J2405; J2710; J3010; J3370; J7030; J7050; J7121

== ENCOUNTER → 2022-04-10 | Day surgery (SDC) | payer MEDICARE, OTHER ==
[2022-04-06 10:45] LABS: BASOPHILS # (AUTO) 0.1 (0.0-0.1); EOSINOPHILS # (AUTO) 0.1 (0.0-0.4); EOSINOPHILS % 1.5 % (0.0-6.0); HEMATOCRIT 39.9 % (34.2-44.1); HEMOGLOBIN 13.3 g/dL (12.0-16.0); LYMPHOCYTES # (AUTO) 2.3 (1.0-3.2); LYMPHOCYTES % 31.4 % (18.0-39.1); MEAN CORPUSCULAR HEMOGLOBIN 29.1 pg (28-32); MEAN CORPUSCULAR HGB CONC 33.3 g/dL (31-35); MEAN CORPUSCULAR VOLUME 87.3 fL (81-99); MONOCYTES # (AUTO) 0.7 (0.2-0.8); MONOCYTES % 9.1 % (4.4-11.3); NEUTROPHILS # (AUTO) 4.1 (2.1-6.9); NEUTROPHILS % 56.6 % (38.7-80.0); PLATELET COUNT 287 x10e3/uL (140-360); RED BLOOD COUNT 4.57 x10e6/uL (3.6-5.1); RED CELL DISTRIBUTION WIDTH 14.6 % (11.7-14.4)
[~2022-04-10] MED LIST changes: +CENTRUM ADULTS1 EACH PO; +CLINDAMYCIN PHOS 900MG/ 50ML 50 ML IV ONE; +DEXAMETHASONE SOD PHOS INJ 4 MG/ML SDV ONE; +FENTANYL CITRATE/PF 100MCG/2 ML INJ ONE; +KETOROLAC TROMETHAMINE 30 MG/ML VIAL ONE; +LIDOCAINE HCL 2% LOCAL INJ 5 ML SDV VIAL INJ ONE; +MIDAZOLAM HCL 2 MG/2 ML VIAL ONE; +ONDANSETRON HCL INJ 2MG/ML 2ML 2 MG/ML VIAL ONE; +POVIDONE IODINE 0.05% 0.05 % ML PO ONE; +PROPOFOL IV EMULSION 10 MG/ML 20 ML VIAL ONE; +RESTASIS1 EACH; +ROPIVACAINE 0.5% 5 MG/ML 30 ML SDV ONE; +SEVOFLURANE INHAL SOLN 250 ML PEN BTL ONE
[2022-04-10 11:25] VITALS: BP 129/79
== END | disposition home or self-care (01) ==
LOC: OR 08:20
PROVIDERS: ATTEND Orthopaedic Surgery
DX: M75.121 Complete rotator cuff tear or rupture of right shoulder, not specified as traumatic (principal); M75.41 Impingement syndrome of right shoulder; M94.211 Chondromalacia, right shoulder; M75.51 Bursitis of right shoulder; M19.90 Unspecified osteoarthritis, unspecified site; I45.10 Unspecified right bundle-branch block; E03.9 Hypothyroidism, unspecified; Z88.0 Allergy status to penicillin; Z01.810 Encounter for preprocedural cardiovascular examination; Z01.812 Encounter for preprocedural laboratory examination; Z01.818 Encounter for other preprocedural examination; Z20.822 Contact with and (suspected) exposure to COVID-19; Z79.899 Other long term (current) drug therapy
CPT/HCPCS: 0223U; 29826; 29827; 36415; 71046; 85025; 93005; J1100; J1885; J2001; J2250; J2405; J2704; J2795; J3010; C1713